=== PATIENT | female | born 1970 | race African-American/Black ===

== ENCOUNTER 2019-06-12 10:52 | Outpatient (CLI) | payer OTHER, SELFPAY ==
--- NOTE | ~2019-06-12 | MMUS_ITS ---
EXAMINATION: MM diagnostic rena BI w subha, US breast RT limited HISTORY: Follow-up right breast mass TECHNIQUE: Additional 3-D tomosynthesis images of were performed and synthetic 2-D images were genera gerry. CAD analysis was submitted and interpreted. High resolution right breast ultrasound was mj young. COMPARISON: Comparison to multiple prior studies sequentially, with oldest reviewed study dated 06/08. FINDINGS: MAMMOGRAPHIC FINDINGS: Breast composed of scattered areas of fibroglandular density. There are no suspicious masses, calcifi cations or architectural distortion in the right breast to suggest malignancy. ULTRASOUND: At 8:00, 3 cm from the nipple, there is an oval circumscribed hypoechoic mass measuring 6 x 3 x 5 mm with low-level internal echoes, posterior acoustic enhancement and no internal vascularity, compatibl e with located cyst. IMPRESSION: 1. Benign findings of the left breast. No mammographic or sonographic evidence for malignancy. 2. Routine yearly screening mammogram and regular clinical breast examination are recommended. BI-RADS Category 2: Benign finding(s). Reviewed, dictated and finalized at location A. [employer] IMPRESSION: 1. Benign findings of the left breast. No mammographic or sonographic evidence for malignancy. 2. Routine yearly screening mammogram and regular clinical breast examination a re recommended. BI-RADS Category 2: Benign finding(s).
== END 2019-06-12 10:53 | disposition home or self-care (01) ==
LOC: ANHIMG 10:55
PROVIDERS: PCP Family Medicine; Visit Provider Obstetrics & Gynecology
DX: R92.8 Other abnormal and inconclusive findings on diagnostic imaging of breast (principal)
CPT/HCPCS: 76642; 77062; 77066; G0279

== ENCOUNTER 2019-07-21 05:33 | Day surgery (SDC) | payer OTHER, SELFPAY ==
[2019-07-18 12:12] VITALS: BMI 39.2
[2019-07-21 06:41] VITALS: BP 141/70; PULSE 69; RESP 18; TEMP 36; O2SAT 100; BMI 39.0
--- NOTE | 2019-07-21 07:05 | WPDANESEPPF ---
Anes - Initial Pre Proc Eval Procedure: Operation Date: 07/21/19 07:30 Proposed Procedures p Esophagogastroduodenoscopy - Roger Juarez MD Date/Time: 07/21/19 07:05 Surgeon: Roger Juarez MD Pre Op Diagnosis: Esophageal Dysphagia Patient Data Age: 49 Gender: F Height: 5 ft 5 in Weight: 106.4 kg Last Vital Signs Temp 36.0 C L 07/21/19 06:41 Pulse 69 07/21/19 06:41 Resp 18 07/21/19 06:41 BP 141/70 H 07/21/19 06:41 Pulse Ox 100 07/21/19 06:41 Allergies Allergy/AdvReac Type Severity Reaction Status Date / Time No Known Allergies Allergy Verified 07/21/19 06:40 Home Medications Medication Instructions Recorded Confirmed Type calcium carbonate 600 mg calcium 600 mg PO DAILY 06/12/19 07/21/19 History (1,500 mg) tablet cholecalciferol (vitamin D3) 50 50 mcg PO DAILY 06/12/19 07/21/19 History mcg (2,000 unit) capsule folic acid 1 mg tablet 1 mg PO DAILY 06/12/19 07/18/19 History omega-3 fatty acids 1,000 mg 1,000 mg PO DAILY 06/12/19 07/21/19 History capsule riboflavin (vitamin B2) 25 mg 25 mg PO DAILY 06/12/19 07/21/19 History tablet fluconazole 150 mg tablet 150 mg PO ONCE #1 tablet 06/26/19 07/18/19 Rx conjugated estrogens [Premarin] 0.625 mg PO DAILY 07/18/19 07/18/19 History metformin 500 mg PO DAILY 07/18/19 07/21/19 History methotrexate sodium See Rx Instructions .ROUTE .COMPLEX 07/18/19 07/18/19 History rosuvastatin 40 mg PO DAILY 07/18/19 07/21/19 History semaglutide [Rybelsus] 3 mg PO DAILY 07/18/19 07/18/19 History Patient hx anesthesia problems: none Family hx anesthesia problems: none PMFSH Past Medical History Medical History Graves disease History of depression History of diabetes mellitus Vaginal delivery x 2 Surgical History Surgical History History of endometrial ablation History of hysterectomy History of tubal ligation Family History Family History Father Hypertension Family history of elevated blood lipids Family history of coronary artery disease Grandparent Carcinoma of colon Diabetes mellitus Mother Family history of lupus erythematosus Social History Social History Smoking status: Never smoker Second hand tobacco smoke exposure: No Alcohol intake: never Gender identity (if verbalized by the patient): Female Anes - Eval Final PreProcedure Day of Procedure 07/21/19 07:05 Patient weight: obese Heart: regular rate and rhythm Lungs: clear to auscultation Airway: Mallampati scale class III Neurological: alert and oriented Last oral intake: >/= 8 hours ASA classification: III Emergent: no Anesthetic plan: proceed Anesthesia type and monitoring: general GIVS and standard monitoring Informed Consent: The patient's anesthetic plan and its attendant risks and benefits were discussed with the patient/family/POA. Questions were solicited and answers provided to the satisfaction of the patient/family/POA.
[2019-07-21 07:07] LABS: Glucose Point of Care 132 (65-105)
[2019-07-21] MEDS: LACTATED RINGERS 1,000 ML 150 ML IV CONT (07:07)
--- NOTE | 2019-07-21 07:10 | PM.HPGS ---
History of Present Illness History of Present Illness Consent: Risks, benefits, and alternatives have been discussed and questions answered. Patient agrees to proceed with procedure. Chief complaint: Esophageal Dysphagia Narrative: Nona Bal is a 49 year old AA female Who was referred for semi- emergent gastroscopy for evaluation of dysphagia. This is primarily with solids but can occur with liquids. She points to the cervical region. She states she does have some heartburn but does not take any acid inhibitory therapy on a regular basis. Patient does have a history of rheumatoid arthritis she takes methotrexate and naproxen on a intermittent basis. She has had no weight loss. She denies any increased stress. Patient has no known food allergies. Patient a previous colonoscopy February 2018 which was normal. [facility] Past Medical History Medical History Graves disease History of depression History of diabetes mellitus Vaginal delivery x 2 Surgical History Surgical History History of endometrial ablation History of hysterectomy History of tubal ligation Family History Family History Father Hypertension Family history of elevated blood lipids Family history of coronary artery disease Grandparent Carcinoma of colon Diabetes mellitus Mother Family history of lupus erythematosus Social History Social History Smoking status: Never smoker Second hand tobacco smoke exposure: No Alcohol intake: never Gender identity (if verbalized by the patient): Female Meds Home Medications and Allergies Home Medications Medication Instructions Recorded Confirmed Type calcium carbonate 600 mg calcium 600 mg PO DAILY 06/12/19 07/21/19 History (1,500 mg) tablet cholecalciferol (vitamin D3) 50 50 mcg PO DAILY 06/12/19 07/21/19 History mcg (2,000 unit) capsule folic acid 1 mg tablet 1 mg PO DAILY 06/12/19 07/18/19 History omega-3 fatty acids 1,000 mg 1,000 mg PO DAILY 06/12/19 07/21/19 History capsule riboflavin (vitamin B2) 25 mg 25 mg PO DAILY 06/12/19 07/21/19 History tablet fluconazole 150 mg tablet 150 mg PO ONCE #1 tablet 06/26/19 07/18/19 Rx conjugated estrogens [Premarin] 0.625 mg PO DAILY 07/18/19 07/18/19 History metformin 500 mg PO DAILY 07/18/19 07/21/19 History methotrexate sodium See Rx Instructions .ROUTE .COMPLEX 07/18/19 07/18/19 History rosuvastatin 40 mg PO DAILY 07/18/19 07/21/19 History semaglutide [Rybelsus] 3 mg PO DAILY 07/18/19 07/18/19 History Allergies Allergy/AdvReac Type Severity Reaction Status Date / Time No Known Allergies Allergy Verified 07/21/19 06:40 Vital Signs Vital Signs - 24 hr 07/21/19 06:41 Temperature 36.0 C L Pulse Rate 69 Respiratory Rate 18 Blood Pressure 141/70 H Pulse Oximetry 100 Exam Const: Orientation/consciousness: patient oriented x3 Resp: Auscultation: clear to auscultation bilaterally Cardio: Rate: regular rate Rhythm: regular rhythm Heart sounds: no murmurs GI: GI Palp: Yes Soft to palpation, No Tenderness to palpation present (GI), Yes No hepatosplenomegaly present and No Palpable mass present Auscultation: normal bowel sounds Neuro: General: patient oriented x3 and no focal motor deficits Extrem: General: no pedal edema Assessment and Plan Additional Plan EGD with possible esophageal dilatation for evaluation of heartburn and dysphagia.
[2019-07-21 07:41] VITALS: BP 123/83; PULSE 83; RESP 16; O2SAT 100
[2019-07-21 07:51] VITALS: BP 129/90; PULSE 75; RESP 20; O2SAT 100
[2019-07-21 08:01] VITALS: BP 127/84; PULSE 68; RESP 25; O2SAT 100
== END 2019-07-21 08:19 | disposition home or self-care (01) ==
PROVIDERS: PCP Family Medicine; Visit Provider Internal Medicine Gastroenterology
PROC: 0DJ08ZZ Inspection of Upper Intestinal Tract, Via Natural or Artificial Opening Endoscopic (ICD-10-PCS; CPT 43235; principal; 2019-07-21 07:30)
DX: R13.10 Dysphagia, unspecified (principal); K21.0 Gastro-esophageal reflux disease with esophagitis; E11.9 Type 2 diabetes mellitus without complications; Z79.84 Long term (current) use of oral hypoglycemic drugs; E05.00 Thyrotoxicosis with diffuse goiter without thyrotoxic crisis or storm; E66.9 Obesity, unspecified; Z68.39 Body mass index [BMI] 39.0-39.9, adult
CPT/HCPCS: 43239; 87081; 88305; J2704; J7120

== ENCOUNTER 2020-06-17 14:21 | Outpatient (CLI) | payer OTHER, SELFPAY ==
--- NOTE | ~2020-06-17 | MM_ITS ---
EXAMINATION: MM screening rena BI w subha HISTORY: Screening TECHNIQUE: Craniocaudal and mediolateral oblique 3-D tomosynthesis images were obtained and synthetic 2-D images were generated. CAD analysis was submitted and interpreted. COMPARISON: Comparison to multiple prior studies sequentially, with oldest reviewed study dated 06/08. BREAST PARENCHYMAL COMPOSITION: There are scattered areas of fibroglandular density. FINDINGS: There is no evidence of suspicious mass, calcification, or architectural distortion to sugg est malignancy in either breast. There has been no suspicious interval change. IMPRESSION: 1. No mammographic evidence of malignancy. 2. Recommend routine screening mammography in one year. BI-RADS Category 1: Negative Reviewed, dictated and finalized at location A. PRESS OPERATOR
== END 2020-06-17 14:22 | disposition home or self-care (01) ==
LOC: ANHIMG 14:23
PROVIDERS: PCP Family Medicine; Visit Provider Obstetrics & Gynecology
DX: Z12.31 Encounter for screening mammogram for malignant neoplasm of breast (principal)
CPT/HCPCS: 77063; 77067

== ENCOUNTER 2020-09-07 20:42 | Emergency (ER) | payer OTHER, SELFPAY ==
[2020-09-07 20:49] VITALS: BP 147/90; PULSE 77; RESP 16; TEMP 36.8; O2SAT 98
--- NOTE | 2020-09-07 20:56 | ED.GENADULT ---
HPI - General Adult General Chief complaint: Extremity Injury, Lower Stated complaint: toe pain Time Seen by Provider: 09/07/20 20:51 Source: patient and RN notes reviewed Mode of arrival: ambulatory Limitations: no limitations History of Present Illness HPI narrative: Patient is a 50-year-old female with right great toe pain that presents with atraumatic pain involving the lateral nail margin denies similar occurrence in the past fever chills drainage or other concerns Related Data Home Medications Medication Instructions Recorded Confirmed calcium carbonate 600 mg calcium 600 mg PO DAILY 06/12/19 06/19/20 (1,500 mg) tablet cholecalciferol (vitamin D3) 50 50 mcg PO DAILY 06/12/19 06/19/20 mcg (2,000 unit) capsule folic acid 1 mg tablet 1 mg PO DAILY 06/12/19 06/19/20 riboflavin (vitamin B2) 25 mg 25 mg PO DAILY 06/12/19 06/19/20 tablet Rybelsus 3 mg PO DAILY 07/18/19 06/19/20 metformin 500 mg PO DAILY 07/18/19 06/19/20 methotrexate sodium 09/07/20 09/07/20 Allergies Allergy/AdvReac Type Severity Reaction Status Date / Time No Known Allergies Allergy Verified 09/07/20 20:48 Review of Systems Review of Systems: All systems reviewed & are unremarkable except as noted in HPI and below PMFSH Past Medical History Medical History (Updated 09/07/20 @ 21:01 by Justin Desai PA-C) Graves disease History of depression History of diabetes mellitus Vaginal delivery x 2 Surgical History Surgical History History of endometrial ablation History of hysterectomy History of tubal ligation Family History Family History Father Hypertension Family history of elevated blood lipids Family history of coronary artery disease Grandparent Carcinoma of colon Diabetes mellitus Mother Family history of lupus erythematosus Social History Social History Smoking status: Never smoker Second hand tobacco smoke exposure: No Alcohol intake: never Gender identity (if verbalized by the patient): Female Exam Narrative: Exam Narrative: GENERAL: Well-appearing, well-nourished, and in no acute distress. HEAD: Normocephalic, atraumatic. EXTREMITIES: Normal range of motion. No edema. Tenderness of the medial nail margin involving the right great toe no deformities erythema or other concerning findings SKIN: Warm, dry, no rash. NEURO: No focal deficits. Alert and oriented x3. Neurovascularly intact. Capillary refill less than 2 seconds PSYCH: Normal mood and affect. Course Course Emergency Course: Patient in the room no distress will be referred to podiatry feels comfortable with this treatment plan and will return if symptoms worsen Vital Signs Vital signs: Vital Signs Temperature 98.2 F 09/07/20 20:49 Pulse Rate 77 09/07/20 20:49 Respiratory Rate 16 09/07/20 20:49 Blood Pressure 147/90 H 09/07/20 20:49 Pulse Oximetry 98 09/07/20 20:49 Temperature 98.2 F 09/07/20 20:49 Pulse Rate 77 09/07/20 20:49 Respiratory Rate 16 09/07/20 20:49 Blood Pressure 147/90 H 09/07/20 20:49 Pulse Oximetry 98 09/07/20 20:49 Medical Decision Making MDM Narrative Medical decision making narrative: Patients injury or pain is consistent with musculoskeletal etiology. No signs of neurological or vascular compromise on exam. Compartments and tisues are soft without signs of compartment syndrome. Pain is felt appropriate for further evaluation on an outpatient basis. Vital Signs Vital Signs: Vital Signs Temperature 98.2 F 09/07/20 20:49 Pulse Rate 77 09/07/20 20:49 Respiratory Rate 16 09/07/20 20:49 Blood Pressure 147/90 H 09/07/20 20:49 Pulse Oximetry 98 09/07/20 20:49 Temperature 98.2 F 09/07/20 20:49 Pulse Rate 77 09/07/20 20:49 Respiratory Rate 16 09/07/20 20:49 Blood Pressure 147/90 H
== END 2020-09-07 21:13 | disposition home or self-care (01) ==
LOC: ANHED 21:04
PROVIDERS: Emergency Provider Emergency Medicine; PCP Family Medicine
DX: M79.674 Pain in right toe(s) (principal); E05.00 Thyrotoxicosis with diffuse goiter without thyrotoxic crisis or storm; E11.9 Type 2 diabetes mellitus without complications; Z79.84 Long term (current) use of oral hypoglycemic drugs
CPT/HCPCS: 99281

== ENCOUNTER 2020-11-21 14:00 | Outpatient (RCR) | payer OTHER, SELFPAY ==
[2020-11-21 14:11] VITALS: BMI 40.4
[2020-11-21 14:13] VITALS: BMI 40.4
== END 2021-02-12 11:52 | disposition home or self-care (01) ==
LOC: ANHDMC 14:00
PROVIDERS: PCP Family Medicine; Visit Provider Internal Medicine Endocrinology, Diabetes & Metabolism
DX: E11.9 Type 2 diabetes mellitus without complications (principal); Z71.3 Dietary counseling and surveillance; Z71.89 Other specified counseling
CPT/HCPCS: 97802; G0108

== ENCOUNTER 2021-02-03 12:45 | Emergency (ER) | payer OTHER, SELFPAY ==
--- NOTE | ~2021-02-03 | XR_ITS ---
EXAMINATION: XR finger 2nd RT min 2V DATE: 02/03/2021 13:45 INDICATION: Right hand second digit injury. TECHNIQUE: 4 views of right hand second digit were obtained. COMPARISON: None. FINDINGS: Bone alignment is normal. No fracture. Joint spaces are well maintained. IMPRESSION: 1. No fracture. Reviewed, dictated and finalized at location A. IMPRESSION: 1. No fracture.
[2021-02-03 13:31] VITALS: BP 146/96; PULSE 74; RESP 14; TEMP 36.3; O2SAT 100
--- NOTE | 2021-02-03 15:58 | ED.GENADULT ---
HPI - General Adult General Chief complaint: Extremity Injury, Upper Stated complaint: finger injury Time Seen by Provider: 02/03/21 14:51 Source: patient Mode of arrival: ambulatory Limitations: no limitations History of Present Illness HPI narrative: Patient is a 50-year-old female presenting with chief complaint of swelling and skin tear to the right index finger that she sustained slamming into the door accidentally. Patient reports swelling and bruising along with a skin tear. Patient reports decreased ability to bend the finger due to swelling and discomfort. Patient denies any other injuries. Patient reports she is up-to-date on tetanus. Related Data Home Medications Medication Instructions Recorded Confirmed calcium carbonate 600 mg calcium 600 mg PO DAILY 06/12/19 06/19/20 (1,500 mg) tablet cholecalciferol (vitamin D3) 50 50 mcg PO DAILY 06/12/19 06/19/20 mcg (2,000 unit) capsule folic acid 1 mg tablet 1 mg PO DAILY 06/12/19 06/19/20 riboflavin (vitamin B2) 25 mg 25 mg PO DAILY 06/12/19 06/19/20 tablet Rybelsus 3 mg PO DAILY 07/18/19 06/19/20 metformin 500 mg PO DAILY 07/18/19 06/19/20 methotrexate sodium 09/07/20 09/07/20 Allergies Allergy/AdvReac Type Severity Reaction Status Date / Time No Known Allergies Allergy Verified 02/03/21 15:39 Review of Systems Review of Systems: CONSTITUTIONAL: Denies fever, chills, or sweats. EYES: Denies visual changes, redness, or discharge. ENT: Denies rhinorrhea, congestion, sore throat, or otalgia. CARDIOVASCULAR: Denies chest pain, palpitations, or edema. RESPIRATORY: Denies cough or dyspnea. GASTROINTESTINAL: Denies abdominal pain, nausea, vomiting, or diarrhea. GENITOURINARY: Denies dysuria or hematuria. SKIN: Reports skin tear denies rash or itching. MUSCULOSKELETAL: Reports finger injury denies back pain, joint pain, or myalgia. NEUROLOGIC: Denies headache, numbness, dizziness, or weakness. PSYCHIATRIC: Denies anxiety or depression. [facility] Past Medical History Medical History (Updated 02/03/21 @ 16:06 by Natasha Maza PA-C) Graves disease History of depression History of diabetes mellitus Vaginal delivery x 2 Surgical History Surgical History History of endometrial ablation History of hysterectomy History of tubal ligation Family History Family History Father Hypertension Family history of elevated blood lipids Family history of coronary artery disease Grandparent Carcinoma of colon Diabetes mellitus Mother Family history of lupus erythematosus Social History Social History Smoking status: Never smoker Second hand tobacco smoke exposure: No Alcohol intake: never Gender identity (if verbalized by the patient): Female Spiritual care concerns: No Exam Narrative: GENERAL: Well-appearing, well-nourished, and in no acute distress. HEAD: Normocephalic, atraumatic. EYES: PERRLA and EOMI. CHEST: Clear to auscultation. No respiratory distress. No wheezes rales or rhonchi HEART: Regular rate and rhythm. No murmur heard. Normal peripheral pulses. EXTREMITIES: Normal range of motion. SKIN: Skin tear to right index finger. Decreased flexion with edema. Non bleeding. Warm, dry, no rash. NEURO: No focal deficits. Alert and oriented x3. PSYCH: Normal mood and affect. Course Vital Signs Vital signs: Vital Signs Temperature 97.3 F L 02/03/21 13:31 Pulse Rate 74 02/03/21 13:31 Respiratory Rate 14 02/03/21 13:31 Blood Pressure 146/96 H 02/03/21 13:31 Pulse Oximetry 100 02/03/21 13:31 Temperature 97.3 F L 02/03/21 13:31 Pulse Rate 74 02/03/21 13:31 Respiratory Rate 14 02/03/21 13:31 Blood Pressure 146/96 H 02/03/21 13:31 Pulse Oximetry 100 02/03/21 13:31 Medical Decision Making MDM Narrative Medical decision making na
== END 2021-02-03 16:38 | disposition home or self-care (01) ==
PROVIDERS: Emergency Provider Emergency Medicine; PCP Family Medicine
DX: S63.610A Unspecified sprain of right index finger, initial encounter (principal); E05.00 Thyrotoxicosis with diffuse goiter without thyrotoxic crisis or storm; E11.9 Type 2 diabetes mellitus without complications; Z79.84 Long term (current) use of oral hypoglycemic drugs; W23.0XXA Caught, crushed, jammed, or pinched between moving objects, initial encounter
CPT/HCPCS: 29130; 73140; 99283

== ENCOUNTER 2021-02-21 12:38 | Outpatient (CLI) | payer OTHER, SELFPAY ==
--- NOTE | ~2021-02-21 | MMUS_ITS ---
EXAMINATION: MM diagnostic rena BI w subha, US breast LT limited HISTORY: Palpable left breast abnormality TECHNIQUE: Additional 3-D tomosynthesis images of the breasts were performed and synthetic 2-D images were generated. CAD analysis was submitted and interpreted. High resolution Limited left breast ultr asound was performed. COMPARISON: Comparison to multiple prior studies sequentially, with oldest reviewed study dated 06/08. BREAST PARENCHYMAL COMPOSITION: Breast composed of scattered areas of fibroglandular density FINDINGS: MAMMOGRAPHIC FINDINGS: The breasts are stable. No new masses, calcifications or architectural distortion in either breast to suggest malignancy. ULTRASOUND: Limited left breast ultrasound: Normal heterogeneous echotexture without focal solid or cystic mass. IMPRESSION: 1. No evidence for malignancy in either breast. 2. Routine yearly screening mammogram and regular clinical breast examination are recommended. BI-RADS Category 1: Negative Reviewed, dictated and finalized at location A. IMPRESSION: 1. No evidence for malignancy in either breast. 2. Routine yearly screening mammogram and regular clinical breast examination a re recommended. BI-RADS Category 1: Negative
== END 2021-02-21 12:39 | disposition home or self-care (01) ==
PROVIDERS: PCP Family Medicine; Visit Provider Obstetrics & Gynecology
DX: R92.8 Other abnormal and inconclusive findings on diagnostic imaging of breast (principal)
CPT/HCPCS: 76642; 77062; 77066; G0279

== ENCOUNTER 2021-10-06 14:54 | Outpatient (RCR) | payer OTHER, SELFPAY ==
--- NOTE | 2021-10-06 16:28 | PTOPEVAL ---
PHYSICAL THERAPY EVALUATION AND PROGRESS REPORT Thank you for referring Nona Bal to [facility].? The patient is scheduled to be seen for therapy? 1x/week for 5 weeks. Please review, sign, date and return this plan of care YURIY. I agree with and certify that the following plan of care is medically necessary. Referring Physician Date Attending Provider: David Cabrera, FLY RAISER LOCKSTITCH-Margie Diagnosis pelvic pain Onset 2-3months Subjective Information Reports an initial pain of Query Text:As Reported By Patient/ suprapubic pain that would Family radiate down her legs. She was experiencing it quite significantly and now the pain is only occasional. No pattern to the behavior of the pain. No specific trigger and nothing helps it to ease. States that when she experiences the severe pain it will last about 30minutes and she just keeps working through it. does have a history of concussion from January 2021 from a work injury. She is sensitive to light and has neck and upper back pain and headaches. Pain Scale Pain Scale Used Numeric (1 - 10) Self Report Pain Assessment Pelvis Reported Pain Level 0 Pain Description Sharp Pain Frequency Acute,Intermittent Lumbar ROM Lumbar Flexion Active Ankle Lumbar Comments functional without increase in symptoms; qasim's sign upon return to standing from flexion Gross Lower Extremity Range of Motion right hip internal rotation < Comments left Hip Strength Left Hip Flexion Strength 5 Normal Hip Extension Strength 3+ Fair + Hip Abduction Strength 3- Fair - Right Hip Flexion Strength 4+ Good + Hip Extension Strength 3- Fair - Hip Abduction Strength 3- Fair - Hip Medial Rotation Strength 4- Good - Hip Lateral Rotation Strength 4- Good - Knee Strength Left Knee Flexion Strength 5 Normal Knee Extension Strength 5 Normal Right Knee Flexion Strength 4 Good Knee Extension Strength 4 Good Muscle Length Testing Piriformis w/Hip Flexion >90 Degrees (R) Moderate Tightness,(L) Moderate Tightness Right Str
--- NOTE | 2021-10-30 13:44 | PCPTNOTE ---
PHYSICAL THERAPY DISCHARGE NOTE Attending Provider: KARSTEN Cordova Patient:Nona Bal Date of :1970 Patient has not returned for or scheduled any further treatments since 10/06/2021, therefore will be discharged at this time. Patient?s initial visit was on 10/06/2021 and had a total of 1 visit. Thank you for referring this patient to [facility]. Please review, sign, date and return this discharge summary YURIY. I have been updated about the patient's current status and I agree with discharge from the above service at this time. Referring Physician Date
== END 2021-10-30 15:08 | disposition home or self-care (01) ==
LOC: ANHPT 14:54
PROVIDERS: PCP Family Medicine; Visit Provider Nurse Practitioner
DX: M99.05 Segmental and somatic dysfunction of pelvic region (principal)
CPT/HCPCS: 97112; 97162

== ENCOUNTER 2022-01-24 16:43 | Emergency (ER) | payer OTHER, SELFPAY ==
[2022-01-24 16:55] VITALS: BP 129/57; PULSE 74; RESP 20; TEMP 36.1; O2SAT 100
[2022-01-24] MEDS: HYDROcodone/acetaminophen (*CRX) 5-325 MG TABLET 1 TAB PO (17:51)
--- NOTE | 2022-01-24 17:55 | ED.GENADULT ---
HPI - General Adult General Chief complaint: Burn/Smoke Inhalation Stated complaint: grease burn on right hand Time Seen by Provider: 01/24/22 17:16 Source: RN notes reviewed History of Present Illness HPI narrative: Patient presents emergency department from home for a grease burn to the right hand. Patient states that approximately 2 hours ago she was making homemade [place] fries when she was putting the potatoes and and the grease came up and burned her right hand over digits 1 and 2 she states agreement scanning of her fingers states pain in the posterior aspect of the first and second digit with some pain over the palmar aspect no blisters have been seen and there is no other areas of burn patient had rinsed off the area and then put Vaseline over the burn Related Data Home Medications Medication Instructions Recorded Confirmed calcium carbonate 600 mg calcium 600 mg PO DAILY 06/12/19 07/01/21 (1,500 mg) tablet (Calcium) cholecalciferol (vitamin D3) 50 50 mcg PO DAILY 06/12/19 07/01/21 mcg (2,000 unit) capsule riboflavin (vitamin B2) 25 mg 25 mg PO DAILY 06/12/19 07/01/21 tablet metformin 500 mg tablet,extended 500 mg PO DAILY 07/18/19 07/01/21 release 24 hr semaglutide 3 mg tablet (Rybelsus) 3 mg PO DAILY 07/18/19 07/01/21 levothyroxine 50 mcg tablet 50 mcg PO DAILY 02/05/21 07/01/21 (Synthroid) Allergies Allergy/AdvReac Type Severity Reaction Status Date / Time No Known Allergies Allergy Verified 06/30/21 14:02 Review of Systems Review of Systems: Gen.: Denies fevers or chills Musculoskeletal: Reports right hand pain Neuro: Denies numbness, tingling, weakness Skin: See HPI Endo: Denies DM PMFSH Past Medical History Medical History Graves disease History of depression History of diabetes mellitus Vaginal delivery x 2 Surgical History Surgical History History of endometrial ablation History of total hysterectomy Family History Family History Father Hypertension Family history of elevated blood lipids Family history of coronary artery disease Grandparent Carcinoma of colon Diabetes mellitus Mother Family history of lupus erythematosus Social History Social History Smoking status: Never smoker Second hand tobacco smoke exposure: No Alcohol intake: never Gender identity (if verbalized by the patient): Female Spiritual care concerns: No Exam Narrative: APPEARANCE: No acute distress, nontoxic, resting in bed Eyes: EOMI HEENT: Normocephalic, atraumatic, RESPIRATORY: No respiratory distress MUSCULOSKELETAl: Full flexion-extension of all 5 MCP and IP joints, capillary refill less than 3 seconds in all 5 digits, radial pulse 2+ neurovascular intact NEURO: Awake and alert. Following commands, speech normal, no focal deficits SKIN:: Warm, dry. Normal Color erythema seen over the distal aspects of the first and second digits of the right hand there is no open wounds there are no blisters present Course Course Emergency Course: Discussed with patient results of workup and diagnosis. Discussed need for follow-up with primary care, proper use of medication, and reasons to return to the emergency department. Patient understands and agrees to current treatment plan Vital Signs Vital signs: Vital Signs Temperature 97.0 F L 01/24/22 16:55 Pulse Rate 74 01/24/22 16:55 Respiratory Rate 20 01/24/22 16:55 Blood Pressure 129/57 L 01/24/22 16:55 Pulse Oximetry 100 01/24/22 16:55 Oxygen Delivery Room Air 01/24/22 16:55 Temperature 97.0 F L 01/24/22 16:55 Pulse Rate 74 01/24/22 16:55 Respiratory Rate 20 01/24/22 16:55 Blood Pressure 129/57 L 01/24/22 16:55 Pulse Oximetry 100 01/24/22 16:55 Oxygen Delivery Room Air 01/24/22
[2022-01-24 18:29] VITALS: BP 121/78; PULSE 78; RESP 18; O2SAT 99
== END 2022-01-24 18:31 | disposition home or self-care (01) ==
PROVIDERS: Emergency Provider Emergency Medicine; PCP Family Medicine
DX: T23.141A Burn of first degree of multiple right fingers (nail), including thumb, initial encounter (principal); T31.0 Burns involving less than 10% of body surface; E11.9 Type 2 diabetes mellitus without complications; E05.00 Thyrotoxicosis with diffuse goiter without thyrotoxic crisis or storm; Z90.710 Acquired absence of both cervix and uterus; Z79.84 Long term (current) use of oral hypoglycemic drugs; X10.2XXA Contact with fats and cooking oils, initial encounter; Y93.G3 Activity, cooking and baking
CPT/HCPCS: 99283; A9270

== ENCOUNTER 2022-02-05 14:00 | Outpatient (RCR) | payer OTHER, SELFPAY ==
--- NOTE | 2021-12-05 12:59 | STOPEVAL ---
COGNITIVE EVALUATION Thank you for referring Nona Bal to [facility].? It is recommended that the patient be scheduled for therapy? 2x/week for 4 weeks however therapy will not commence until approved by Workman's Comp. Please review, sign, date and return this plan of care YURIY. I agree with and certify that the following plan of care is medically necessary. Referring Physician Date Attending Provider: Sterling Villanueva, MD Therapy Assessment Status Assessment Status Assessment Status Evaluation Outpatient Past Medical History Neurological History Hx Transient Ischemic Attacks (TIA) Yes Cardiovascular History Hx Hypercholesterolemia Yes Musculoskeletal History Hx Rheumatoid Arthritis Yes Hematological History Hx Hematological Disorders No Significant History Endocrine History Hx Diabetes Yes Hx Other Endocrine Disorders Yes: GRAVES DISEASE, OSCAR'S THRYROIDITIS HEENT History Hx Sinus Problems Yes Integumentary History Hx Skin Disorders No Significant History Reproductive History Hx Other Reproductive Disorders Yes: ABLATION Psychosocial History Hx Psychiatric Disorders No Significant History Pain History History of Any Previous or Ongoing No Significant History Instance of Pain Anesthesia History Hx Anesthesia Reactions No Significant History Evaluation Information Problem Subjective Information Today the patient reports that Query Text:As Reported By Patient/ she has some pain in her head Family and that light bothers her eyes as a result of the accident. Patient that in January of 2022, sitting in the chair and stood to help someone; she stated that the chair moved and she fell backwards into a bookcase. She stated that she did not lose consciousness however she stated that the impact was so hard she actually raised one of the shelves from its perch. Patient stated that she works at [employer] and went to the Emergency Room where they did CT scan, she believes, and she was experiencing nausea. Patient has not returned to work at this time; she states that she had returned to work following the injury however in April, she suffer
--- NOTE | 2022-01-02 16:24 | STOPDC ---
Assessment and note entered by Nydia Urban PLATFORM ATTENDANT Evaluation Information Assessment Status Discharge Reported Pain Level Pain Score 0: Self Report Pain Score 0: Self Report Assessment ST Clinical Summary TREATMENT SESSION AND DISCHARGE SUMMARY This patient has been seen for an initial Speech Therapy evaluation and four treatment sessions focusing on improving attention and memory/recall. Patient was instructed in the use of most common, functional memory strategies and then asked to match appropriate strategies with functional situations (for example, where did I leave my phone? Visual imagery, back tracking, stating aloud and repeating aloud where I set me phone down). Patient demonstrated good understanding of strategies and use of strategies. She was then given a variety of short stories and asked to use strategies to facilitate recall and did so with 90 % accuracy. Patient then recalled 90% of information from stories in the previous session. Today, she completed several other attention/ recall tasks including recalling information from at least 3-part statements and recalling word lists backwards (to assist with using stating the information backwards to get to the first piece of information) with 100% accuracy. When it was determined that patient's memory and recall in the structured setting is within functional limits and patient has already been instructed in memory strategies and uses, it was determined that she is appropriate for discharge. Patient expressed that she felt that coming in to therapy has been helpful and she would have desired more however it was determined that patient has reached maximum potential from skilled treatment and therefore is being discharged with all goals achieved. Thank you for this referral.
--- NOTE | 2022-01-06 17:00 | PTOPEVAL1 ---
Assessment and note entered by Comfort Zhao, PT Evaluation Information Assessment Status Evaluation Diagnosis concussion Onset 01/27/2021 Subjective Information looking up and down, S<>S makes pt dizzy and nauseas. Has been present since injury Reported Pain Level Pain Score 4: Self Report Additional Pain Score Comments Pt has discomfort in occipital region but also has dizziness and nausea. Sometimes will feel bad just laying in bed, watching TV makes eyes bothered and becomes sweaty . Assessment PT Clinical Summary Pt presents w/ c/o nausea and dizziness primarily w/ nerve pain in back of head (not headache), and cervical pain. Symptoms began 01/2021 when pt fell at work and hit her head on a shelf causing a concussion. Pt is currently seeing another provider for eye exercises , has just graduated Speech therapy, and is seeking Physical therapy for her dizziness/nausea issues. Pt currently has light sensitivity, increased nausea with all head motions, guarded bed mobility, tight cervical musculature, decreased cervical AROM, multiple areas tender to palpation, decreased balance cassius with eyes closed, and increased symptoms with [place]- Hallpike R>L. No nystagmus was noted in evaluation however with pt guarding she was unable to move as quickly as try testing requries. Pt symptoms suggestive of cervicogenic vertigo with possibility of R BPPV. 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 Pt was educated on diagnosis, progosis, HEP of cryotherapy to occiput, and plan of care. Pt will benefit from physical therapy in order to address deficits, reduce pain and nausea symptoms, and return to PLOF. Plan of Care Interventions Electrical Stimulation,Hot Pack/Cold Pack,Manual Therapy,Therapeutic Activities,Therapeutic Exercise,Self-Care/Home Management Other Interventions taping PT Services Indicated Yes These treatments will address the objective and functional deficits as defined above. The patient will be advanced safely and appropriately in order for the patient to progress towards his/her prior level of function. Additional exercises will be introduced and as well as a comprehensive home exercise program upon discharge, if needed, ?to ensure
--- NOTE | 2022-02-06 16:52 | PTOPPROG ---
Assessment and note entered by Comfort Zhao, PT Progress Report Assessment Status Progress Diagnosis concussion Onset 01/27/2021 Subjective Information Pt reports feeling 10-15% improved since starting therapy. Feels her neck is able to move better, has nausea less often maybe every other day instead of every day. She has good days and bad days but more good days than prior to beginning physical therapy. Assessment PT Clinical Summary Pt has attended therapy consistently since initial evaluation. She shows improved tolerance to manual techniques related to soft tissue work, ROM techniques, and positions with less nausea and dizziness. Pt reports feeling 10-15% improved, has nausea less often and reports being able to turn her head with less nausea and pain. Pt subjective reports of pain in neck and back of head remain unchanged, objective measurements of cervical spine show minimal improvement in active range of motion, and balance testing appears to have declined today compared to prior evaluation. However pt has not been able to participate in standing balance training nor has she been able to tolerate MUSIC SPECIALIST techniques d/t nausea which may effect the lack of progress in her balance scores. Discussion with pt regarding lack of subjective and objective improvements, pt states she does feel PT is helping. Educated pt if therapy was to continue, the focus may be less conservative secondary to lack of improvement. Pt verbalizes understanding with this. Thus pt may benefit from therapy with increased focus on exercises for ROM and strengthening, balance training, and modified MUSIC SPECIALIST. Plan of Care Interventions Electrical Stimulation,Manual Therapy,Mechanical Traction,Neuro Re-education,Therapeutic Activities ,Therapeutic Exercise,Self-Care/Home Management, Ultrasound,Other Other Interventions Taping PT Services Indicated Yes Treatment Frequency and 2x weekly x 4 weeks Duration These treatments will address the objective and functional deficits as defined above. The patient will be advanced safely and appropriately in order for the patient to progress towards his/her prior level of function. Additional exercises will be introduced and as well as a comprehensive home exercise program upon discharge, if needed, ?to ensure mary
== END 2022-03-05 23:59 | disposition home or self-care (01) ==
LOC: ANHPT 14:00
PROVIDERS: PCP Family Medicine; Visit Provider Neurological Surgery
DX: F07.81 Postconcussional syndrome (principal)
CPT/HCPCS: 92507; 92523; 97014; 97110; 97140; 97162; G0283

== ENCOUNTER 2022-02-26 10:29 | Outpatient (CLI) | payer OTHER, SELFPAY ==
--- NOTE | ~2022-02-26 | MM_ITS ---
EXAMINATION: MM screening rena BI w subha HISTORY: Screening mammogram TECHNIQUE: Craniocaudal and mediolateral oblique 3-D tomosynthesis images were obtained and synthetic 2-D images were generated. CAD analysis was submitted and interpreted. COMPARISON: 02/21/2021 bilateral diagnostic mammography and limited left breast ultrasound 06/17/2020 bilateral screening mammogram 06/08/2019 bilateral diagnostic mammography and limited right breast ultrasound 01/02/2019 limited right breast ultrasound 06/30/2018 diagnostic right mammogram and limited right breast ultrasound 06/10/2018, 06/08/2017 bilateral screening mammogram examinations BREAST PARENCHYMAL COMPOSITION: There are scattered areas of fibroglandular density. FINDINGS: Stable small circumscribed low-density opacity in the outer mid right breast. There is no e vidence of suspicious mass, calcification, or architectural distortion to suggest malignancy in eithe r breast. There has been no suspicious interval change. IMPRESSION: 1. No mammographic evidence of malignancy. 2. Recommend routine screening mammography in one year. BI-RADS Category 2: Benign finding(s). Reviewed, dictated and finalized at location A. PROTECTION EQUIPMENT TECHNICIAN
== END 2022-02-26 10:30 | disposition home or self-care (01) ==
PROVIDERS: PCP Family Medicine; Visit Provider Obstetrics & Gynecology
DX: Z12.31 Encounter for screening mammogram for malignant neoplasm of breast (principal)
CPT/HCPCS: 77063; 77067

== ENCOUNTER 2022-04-21 11:00 | Outpatient (RCR) | payer OTHER, SELFPAY ==
--- NOTE | 2022-04-02 16:38 | PTOPEVAL1 ---
Assessment and note entered by Ankush Zhao, PT Evaluation Information Diagnosis Vestibular Onset January 2021 Subjective Information Patient reports she was injured at work last year and has been dealing with post concussion syndrome since then with some improvement, but still doing eye therapy at [facility] in [place] along with a home traction and Estim device at home for neck and upper back pain. She had a vertigo episode last Wednesday causing her have nausea and dizziness. Reported Pain Level Pain Score 4: Self Report Additional Pain Score Comments doing home traction and E-stim at home Assessment PT Clinical Summary Nona is coming into the clinic for vestibular rehab. Patient is working on habituation with head movement while the body is in motion along with VOR's and cervical range of motion. Patient will work on decreasing symptoms by having more work on integrating vestibular system with vision and propioception. Plan of Care Interventions Gait Training,Manual Therapy,Patient/Caregiver Education,Therapeutic Activities,Therapeutic Exercise PT Services Indicated Yes Treatment Frequency and 2x/wk for 2 weeks Duration These treatments will address the objective and functional deficits as defined above. The patient will be advanced safely and appropriately in order for the patient to progress towards his/her prior level of function. Additional exercises will be introduced and as well as a comprehensive home exercise program upon discharge, if needed, ?to ensure carryover of functional gains achieved in the clinic. This treatment plan has been reviewed and agreement upon by the patient.
--- NOTE | 2022-04-10 15:07 | PCPTNOTE ---
pt called and canceled due to bad weather;
--- NOTE | 2022-04-21 12:03 | PTOPDC ---
Assessment and note entered by Ankush Zhao, PT Evaluation Information Assessment Status Discharge Diagnosis Vestibular Onset January 2021 Subjective Information Patient reports she was doing well since last visit until this weekend when the changes in temperature are messing with her sinuses and she believes that is causing more dizziness. Reported Pain Level Pain Score 0: Self Report Assessment PT Clinical Summary Nona is a 52 year old female coming into the clinic with vestibular issues from a work on site accident. She has attended 3 sessions having to cancel once because of vertigo symptoms. She also came to the clinic prior to this cycle for vestibular and speech therapy. The patient has shown improvements in decreased symptoms while in the clinic until doing a King-Daroff exercise. Will hold on scheduling new appointments until requested by her doctor. At current time she is discharged from physical therapy unless the clinic receives another order for therapy. Plan of Care PT Services Indicated No Treatment Frequency and discharge from skilled physical therapy Duration
== END 2022-04-21 13:40 | disposition home or self-care (01) ==
LOC: ANHPT 11:00
PROVIDERS: PCP Family Medicine; Visit Provider Neurological Surgery
DX: M54.2 Cervicalgia (principal); M12.88 Other specific arthropathies, not elsewhere classified, other specified site; F07.81 Postconcussional syndrome
CPT/HCPCS: 97110; 97162

== ENCOUNTER 2022-06-26 13:19 | Outpatient (CLI) | payer OTHER, SELFPAY ==
--- NOTE | ~2022-06-26 | US_ITS ---
EXAMINATION: US pelvic complete w TV DATE: 06/26/2022 13:51 INDICATION: Pelvic and perineal pain TECHNIQUE: Multiple transabdominal and endovaginal sonographic images of the pelvis were obtained. COMPARISON: None. FINDINGS: The uterus is not visualized consistent with provided history of prior hysterectomy. The bilateral ov yan are also not visualized and may be surgically absent. Correlate with surgical history. 7 mm lik belkis nabothian cyst at the cervical cuff. There is no free fluid in the pelvis. IMPRESSION: 1. No visualized uterus and bilateral ovaries consistent with prior hysterectomy and salpingo-oophore ctomy. Correlate with surgical history. Reviewed, dictated and finalized at location A. TH PSYCHOLOGIST IMPRESSION: 1. No visualized uterus and bilateral ovaries consistent with prior hysterectom y and salpingo-oophorectomy. Correlate with surgical history.
== END 2022-06-26 13:20 | disposition home or self-care (01) ==
PROVIDERS: PCP Family Medicine; Visit Provider Obstetrics & Gynecology
DX: R10.2 Pelvic and perineal pain (principal)
CPT/HCPCS: 76830; 76856

== ENCOUNTER 2022-07-30 15:00 | Outpatient (RCR) | payer OTHER, SELFPAY ==
--- NOTE | 2022-07-09 17:52 | PTOPEVAL1 ---
Assessment and note entered by Ankush Zhao, PT Evaluation Information Assessment Status Evaluation Diagnosis post concussion Subjective Information Patient reports she is still having issues with dizziness and balance, but reports more issues with her eyes and pain on the R posterior portion of the head that she hit. She has returned to work 3 days a week for half days, but is unable to concentrate on more than one thing at a time. Reports dizziness is worse after gettign up from bed and looking at a busy visual field. She is supposed to start eye therapy again and get new glasses, but she is waiting on approval for both of them. Reported Pain Level Pain Score 0: Self Report Assessment PT Clinical Summary Nona is a 52 year old female coming into the clinic for post concussion syndrome. She has been to the clinic twice before for same diagnosis and also done speech therapy here. Never has shown signs of BPPV before, but to rule out it out did Jacki Halpike without nystagmus but severe increase in dizziness. Will continue to work on vestibular rehab with the patient. Plan of Care Interventions Electrical Stimulation,Gait Training,Hot Pack/Cold Pack,Manual Therapy,Neuro Re-education,Patient/ Caregiver Education,Therapeutic Activities, Therapeutic Exercise,Ultrasound Other Interventions taping PT Services Indicated Yes Treatment Frequency and 2x/wk for 3 weeks per MD order Duration These treatments will address the objective and functional deficits as defined above. The patient will be advanced safely and appropriately in order for the patient to progress towards his/her prior level of function. Additional exercises will be introduced and as well as a comprehensive home exercise program upon discharge, if needed, ?to ensure carryover of functional gains achieved in the clinic. This treatment plan has been reviewed and agreement upon by the patient.
--- NOTE | 2022-07-14 14:55 | PCPTNOTE ---
The patient treatment was not able to be completed on 07/14/22, due to feeling worst since last session, has not been feeling right, increased nausea, even vomiting a few times. Also, while at work when she is trying to read or write something the words will change colors or fade. Right now she is feeling nauseous, unsteady, her body feels off, and is having trouble keeping her eyes open. Explained to her that she need to go home and get away from all stimuli today and limited it tomorrow Will plan to continue treatment per plan of care.
--- NOTE | 2022-07-30 16:16 | PTOPEVAL1 ---
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 She is doing better than previous this therapist has seen her. Has been doing biofeedback therapy at a computer screen. 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 Reported Pain Level Pain Score 5: Self Report Additional Pain Score Comments reports the pain is head pain not a head ache. Gets worse as she gets over-stimulated. Assessment PT Clinical Summary Nona is a 52 year old female coming into the clinic for vestibular rehab. She has been here for her third group of vestibular rehab. Evaluated this last time on 07/08/22 and has attended 6 sessions this go around. Patient shows decent balance, but unable to make much progress with ocular motor movement or vestibular rehab as they just make her too dizzy. At this time recommend holding off on vestibular rehab and trying to concentrate on eye therapy. Discharge from skilled physical therapy. Plan of Care Interventions Electrical Stimulation,Gait Training,Hot Pack/Cold Pack,Manual Therapy,Neuro Re-education,Patient/ Caregiver Education,Therapeutic Activities, Therapeutic Exercise,Ultrasound Other Interventions taping PT Services Indicated No Treatment Frequency and Discharged from skilled physical therapy. Duration These treatments will address the objective and functional deficits as defined above. The patient will be advanced safely and appropriately in order for the patient to progress towards his/her prior level of function. Additional exercises will be introduced and as well as a comprehensive home exercise program upon discharge, if needed, ?to ensure carryover of functional gains achieved in the clinic. This treatment plan has been reviewed and agreement upon by the patient.
== END 2022-07-31 11:34 | disposition home or self-care (01) ==
LOC: ANHPT 15:00
PROVIDERS: PCP Family Medicine; Visit Provider Neurological Surgery
DX: M54.2 Cervicalgia (principal); M12.88 Other specific arthropathies, not elsewhere classified, other specified site; F07.81 Postconcussional syndrome
CPT/HCPCS: 97110; 97161

== ENCOUNTER 2022-07-31 16:26 | Emergency (ER) | payer OTHER, SELFPAY ==
--- NOTE | ~2022-07-31 | XR_ITS ---
EXAMINATION: XR chest 2V DATE: 07/31/2022 16:52 INDICATION: Heart palpitations and shortness of breath TECHNIQUE: Frontal and lateral views of the chest are obtained COMPARISON: 01/30/2018 FINDINGS: The lungs are free of acute opacities. No pleural effusion or pneumothorax. The cardiomedia stinal silhouette is normal. There is mild thoracic spondylosis. IMPRESSION: 1. No acute cardiopulmonary abnormality. Reviewed, dictated and finalized at location F.
--- NOTE | 2022-07-31 16:29 | ECG_ITS ---
Measurements Intervals [place] Rate: 80 P: 32 [place]: 160 QRS: -11 QRSD: 91 T: 131 QT: 345 QTc: 399 Interpretive Statements SINUS RHYTHM VOLTAGE CRITERIA FOR LVH MODERATE T-WAVE ABNORMALITY, CONSIDER LATERAL ISCHEMIA ABNORMAL ECG NO PREVIOUS ECG AVAILABLE FOR COMPARISON Electronically Signed On 07-31-2022 16:57:50 CDT by Ivan Yuen M.D.
[2022-07-31 16:41] VITALS: BP 148/71; PULSE 85; RESP 16; TEMP 37; O2SAT 100
[2022-07-31 16:54] LABS: Basophils Absolute Auto 0.1 K/mm3 (0.0-0.1); Basophils Percent Auto 0.5 % (0.2-1.2); Eosinophils Absolute Auto 0.1 K/mm3 (0-0.3); Eosinophils Percent Auto 0.9 % (0-4.4); Hematocrit 40.1 % (37.0-47.0); Hemoglobin 13.1 g/dL (12.0-15.0); Immature Granulocyte Absolute 0.04 K/mm3 (0.00-0.031); Immature Granulocyte Percent A 0.4 % (0-0.5); Lymphocytes Absolute Auto 3.52 K/mm3 (0.9-3.2); Lymphocytes Percent Auto 35.7 % (18.3-44.2); Mean Corpuscular HGB Conc 32.7 g/dl (32-36); Mean Corpuscular Hemoglobin 29.8 pg (26-34); Mean Corpuscular Volume 91.3 fl (80-100); Mean Platelet Volume 8.9 fl (7.4-10.4); Monocytes Absolute Auto 0.6 K/mm3 (0.1-0.6); Monocytes Percent Auto 6.2 % (2.6-8.5); Neutrophils Absolute Auto 5.6 K/mm3 (1.3-6.7); Neutrophils Percent Auto 56.3 % (45.5-73.1); Platelet Count Result 377 k/mm3 (150-375); Red Blood Count 4.39 M/mm3 (4.2-5.4); White Blood Count 9.9 K/mm3 (4.5-10.0)
[2022-07-31 17:04] LABS: Alanine Aminotransferase 23 U/L (6-35); Albumin Level 4.3 g/dL (3.5-5.1); Alkaline Phosphatase 95 U/L (38-126); Anion Gap 8 mmol/L (8-16); Aspartate Amino Transferase 23 U/L (14-36); Bilirubin,Total 0.4 mg/dL (0.2-1.3); Blood Urea Nitrogen 15 mg/dL (7-17); Carbon Dioxide 25 mmol/L (22-30); Chloride 103 mmol/L (98-107); Estimated CRCL calculation 86 ml/min; Estimated Glomerular Filt Rate > 60; Glucose 182 mg/dL (65-110); Lipase 88 U/L (23-300); Potassium 4.2 mmol/L (3.4-5.0); Sodium 136 mmol/L (137-145)
[2022-07-31 17:05] LABS: Partial Thromboplastin Time 30.6 SECONDS (22.3-36.8); Prothrombin Time 12.7 Seconds (11.1-14.7)
[2022-07-31 17:16] LABS: Troponin I < 0.012 ng/mL (0.000-0.034)
--- NOTE | 2022-07-31 18:22 | ED.ARRPALP ---
HPI - Arrhythmia/Palpitations General Chief Complaint: Arrhythmia/Palpitations Stated Complaint: PALPITATIONS Time Seen by Provider: 07/31/22 17:44 History of Present Illness HPI narrative: Patient is a 52-year-old female with a history of asthma, hyperlipidemia, GERD, Graves' disease presenting with palpitations. Patient states that for the last several weeks she has had increasing fatigue and intermittent palpitations. States that she has also been increasingly intolerant to heat. States that she has had off and on pain in her left chest into her left shoulder for the last several weeks as well. States she is concerned for thyroid storm. Currently, she denies any pain. States that she has some mild nausea and she continues to feel fatigued. She denies numbness or weakness, fevers, abdominal pain, vomiting, diarrhea, dysuria, leg swelling. She does report some constipation. States that sometimes she will feel short of breath which improves with her inhaler. States that she used to be on Synthroid but she quit it about a year ago. Related Data Home Medications Medication Instructions Recorded Confirmed calcium carbonate 600 mg calcium 600 mg PO DAILY 06/12/19 07/29/22 (1,500 mg) tablet (Calcium) cholecalciferol (vitamin D3) 50 50 mcg PO DAILY 06/12/19 07/29/22 mcg (2,000 unit) capsule riboflavin (vitamin B2) 25 mg 25 mg PO DAILY 06/12/19 07/29/22 tablet metformin 500 mg tablet,extended 500 mg PO DAILY 07/18/19 07/29/22 release 24 hr levothyroxine 50 mcg tablet 50 mcg PO DAILY 02/05/21 07/29/22 (Synthroid) albuterol sulfate 90 mcg/actuation 1 inh inhalation Q4H PRN Shortness 05/26/22 07/29/22 aerosol inhaler Of Breath gabapentin 300 mg capsule 300 mg PO DAILY 05/26/22 07/29/22 montelukast 10 mg tablet 10 mg PO DAILY 05/26/22 07/29/22 rosuvastatin 20 mg tablet 20 mg PO DAILY 05/26/22 07/29/22 semaglutide 0.25 mg or 0.5 mg (2 0.25 mg subcut WEEKLY 05/26/22 07/29/22 mg/3 mL) subcutaneous pen injector (Ozempic) famotidine 10 mg tablet 10 mg PO DAILY 07/29/22 07/29/22 Allergies Allergy/AdvReac Type Severity Reaction Status Date / Time No Known Allergies Allergy Verified 07/29/22 13:46 Review of Systems Review of Systems: All systems reviewed & are unremarkable except as noted in HPI and below PMFSH Past Medical History Medical History Graves disease History of depression History of diabetes mellitus Vaginal delivery x 2 Surgical History Surgical History History of endometrial ablation History of total hysterectomy Family History Family History Father Hypertension Family history of elevated blood lipids Family history of coronary artery disease Grandparent Carcinoma of colon Diabetes mellitus Mother Family history of lupus erythematosus Social History Social History Smoking status: Never smoker Second hand tobacco smoke exposure: No Alcohol intake: never Substance use: never Substance use type: does not use Lack of Transportation: No Lack of Food: Never True Current Housing: I Have Housing Concerned About Future Housing: Decline to Answer Difficulty Paying Gas/Electric Bills: No Difficulty Paying for Meds: No Currently Unemployed: No Education: Master's Degree or Higher Difficulty w/ Childcare or Family Care: No Gender identity (if verbalized by the patient): Female Spiritual care concerns: No Exam Narrative: GENERAL: Well-appearing, well-nourished, and in no acute distress. HEAD: Normocephalic, atraumatic. EYES: PERRLA and EOMI. ENT: Nares clear, no rhinorrhea or epistaxis. Mucous membranes moist. NECK: Supple. CHEST: Clear to auscultation. No respiratory distress. HEART: Regular rate and rhythm. No murmur hear
[2022-07-31] MEDS: ONDANSETRON INJ 4 MG/2 ML VIAL IV PUSH (18:36)
[2022-07-31] MEDS: SODIUM CHLORIDE 0.9% IV 1,000 ML 999 ML IV CONT (18:36)
[2022-07-31 19:26] LABS: Influenza A QL RT-PCR Negative (Negative); Influenza B QL RT-PCR Negative (Negative); RSV RNA, RT-PCR Negative (Negative); SARS-CoV-2 RNA PCR Negative
== END 2022-07-31 21:22 | disposition home or self-care (01) ==
PROVIDERS: Emergency Medicine; Emergency Provider Emergency Medicine; PCP Family Medicine
DX: R00.2 Palpitations (principal); R53.83 Other fatigue; Z20.822 Contact with and (suspected) exposure to COVID-19; J45.909 Unspecified asthma, uncomplicated; E05.00 Thyrotoxicosis with diffuse goiter without thyrotoxic crisis or storm; K21.9 Gastro-esophageal reflux disease without esophagitis; Z79.84 Long term (current) use of oral hypoglycemic drugs; Z79.85 Long-term (current) use of injectable non-insulin antidiabetic drugs; Z90.710 Acquired absence of both cervix and uterus
CPT/HCPCS: 36415; 71046; 80053; 83690; 84443; 84484; 85025; 85610; 85730; 87637; 93005; 96361; 96374; 99284; J2405; J7030

== ENCOUNTER 2022-08-07 02:53 | Day surgery (SDC) | payer OTHER, SELFPAY ==
[2022-07-29 13:50] VITALS: BMI 36.6
--- NOTE | 2022-08-06 17:32 | PM.HPGS ---
History of Present Illness History of Present Illness Consent: Risks, benefits, and alternatives have been discussed and questions answered. Patient agrees to proceed with procedure. Chief complaint: dysphagia Narrative: Nona Bal is a 52 year old female Who has dealt with heartburn from time to time, but in the last 2 months she has had a great deal of symptomatology; she would notice that she has of feeling that she may vomit which begins after dinner and will still be present when she goes to bed around 10:00 p.m..? At times in fact she will regurgitate a small bit.? She also has been feeling full and cannot quite finish meal at times.? She believes she eats maybe 1 good meal a day.? Another issue is that it feels as though food is getting stuck, primarily solid food.? Lately this happens with every meal whether it is salad, chicken, or even eggs. Review of Systems Review of Systems: All systems reviewed & are unremarkable except as noted in HPI and below PMFSH Past Medical History Medical History Graves disease History of depression History of diabetes mellitus Vaginal delivery x 2 Surgical History Surgical History History of endometrial ablation History of total hysterectomy Family History Family History Father Hypertension Family history of elevated blood lipids Family history of coronary artery disease Grandparent Carcinoma of colon Diabetes mellitus Mother Family history of lupus erythematosus Social History Social History Smoking status: Never smoker Second hand tobacco smoke exposure: No Alcohol intake: never Substance use: never Substance use type: does not use Lack of Transportation: No Lack of Food: Never True Current Housing: I Have Housing Concerned About Future Housing: Decline to Answer Difficulty Paying Gas/Electric Bills: No Difficulty Paying for Meds: No Currently Unemployed: No Education: Master's Degree or Higher Difficulty w/ Childcare or Family Care: No Gender identity (if verbalized by the patient): Female Spiritual care concerns: No Meds Home Medications and Allergies Home Medications Medication Instructions Recorded Confirmed Type calcium carbonate 600 mg calcium 600 mg PO DAILY 06/12/19 07/29/22 History (1,500 mg) tablet (Calcium) cholecalciferol (vitamin D3) 50 50 mcg PO DAILY 06/12/19 07/29/22 History mcg (2,000 unit) capsule riboflavin (vitamin B2) 25 mg 25 mg PO DAILY 06/12/19 07/29/22 History tablet metformin 500 mg tablet,extended 500 mg PO DAILY 07/18/19 07/29/22 History release 24 hr levothyroxine 50 mcg tablet 50 mcg PO DAILY 02/05/21 07/29/22 History (Synthroid) albuterol sulfate 90 mcg/actuation 1 inh inhalation Q4H PRN Shortness 05/26/22 07/29/22 History aerosol inhaler Of Breath gabapentin 300 mg capsule 300 mg PO DAILY 05/26/22 07/29/22 History montelukast 10 mg tablet 10 mg PO DAILY 05/26/22 07/29/22 History rosuvastatin 20 mg tablet 20 mg PO DAILY 05/26/22 07/29/22 History semaglutide 0.25 mg or 0.5 mg (2 0.25 mg subcut WEEKLY 05/26/22 07/29/22 History mg/3 mL) subcutaneous pen injector (Ozempic) estradiol 0.01% (0.1 mg/gram) See Rx Instructions .Route 06/17/22 07/29/22 Rx vaginal cream (Estrace) .COMPLEX #42.5 grams triamcinolone acetonide 0.1 % 1 applic topical BID PRN vaginal 06/17/22 07/29/22 Rx topical ointment irritation #30 grams famotidine 10 mg tablet 10 mg PO DAILY 07/29/22 07/29/22 History ondansetron 4 mg disintegrating 4 mg PO Q8H PRN nausea and 07/31/22 08/07/22 Rx tablet vomiting #10 tabs Allergies Allergy/AdvReac Type Severity Reaction Status Date / Time No Known Allergies Allergy Verified 08/07/22 11:38 Exam Const: General: alert Orientat
[2022-08-07 11:39] VITALS: BP 121/78; PULSE 64; RESP 18; TEMP 36.6; O2SAT 100
[2022-08-07 11:59] LABS: Glucose Point of Care 140 mg/dl (65-105)
--- NOTE | 2022-08-07 12:25 | WPDANESEPPF ---
Anes - Initial Pre Proc Eval Procedure: Operation Date: 08/07/22 13:00 Proposed Procedures p Esophagogastroduodenoscopy - Trey Foreman MD Date/Time: 08/07/22 12:25 Surgeon: Trey Foreman MD Pre Op Diagnosis: dysphagia Patient Data Age: 52 Gender: F Height: 1.65 m Weight: 99.9 kg Last Vital Signs Temp 97.8 F 08/07/22 11:39 Pulse 64 08/07/22 11:39 Resp 18 08/07/22 11:39 BP 121/78 08/07/22 11:39 Pulse Ox 100 08/07/22 11:39 O2 Del Method Room Air 08/07/22 11:39 Allergies Allergy/AdvReac Type Severity Reaction Status Date / Time No Known Allergies Allergy Verified 08/07/22 11:38 Home Medications Medication Instructions Recorded Confirmed Type calcium carbonate 600 mg calcium 600 mg PO DAILY 06/12/19 07/29/22 History (1,500 mg) tablet (Calcium) cholecalciferol (vitamin D3) 50 50 mcg PO DAILY 06/12/19 07/29/22 History mcg (2,000 unit) capsule riboflavin (vitamin B2) 25 mg 25 mg PO DAILY 06/12/19 07/29/22 History tablet metformin 500 mg tablet,extended 500 mg PO DAILY 07/18/19 07/29/22 History release 24 hr levothyroxine 50 mcg tablet 50 mcg PO DAILY 02/05/21 07/29/22 History (Synthroid) albuterol sulfate 90 mcg/actuation 1 inh inhalation Q4H PRN Shortness 05/26/22 07/29/22 History aerosol inhaler Of Breath gabapentin 300 mg capsule 300 mg PO DAILY 05/26/22 07/29/22 History montelukast 10 mg tablet 10 mg PO DAILY 05/26/22 07/29/22 History rosuvastatin 20 mg tablet 20 mg PO DAILY 05/26/22 07/29/22 History semaglutide 0.25 mg or 0.5 mg (2 0.25 mg subcut WEEKLY 05/26/22 07/29/22 History mg/3 mL) subcutaneous pen injector (Ozempic) estradiol 0.01% (0.1 mg/gram) See Rx Instructions .Route 06/17/22 07/29/22 Rx vaginal cream (Estrace) .COMPLEX #42.5 grams triamcinolone acetonide 0.1 % 1 applic topical BID PRN vaginal 06/17/22 07/29/22 Rx topical ointment irritation #30 grams famotidine 10 mg tablet 10 mg PO DAILY 07/29/22 07/29/22 History ondansetron 4 mg disintegrating 4 mg PO Q8H PRN nausea and 07/31/22 08/07/22 Rx tablet vomiting #10 tabs Laboratory Tests 08/07/22 11:55 POC Capillary Glucose 140 mg/dl H mg/dl (65-105) Patient hx anesthesia problems: none Family hx anesthesia problems: none Results Review: All pre-operative results and documents have been reviewed as part of the pre-operative evaluation. [facility] Past Medical History Medical History Graves disease History of depression History of diabetes mellitus Vaginal delivery x 2 Surgical History Surgical History History of endometrial ablation History of total hysterectomy Family History Family History Father Hypertension Family history of elevated blood lipids Family history of coronary artery disease Grandparent Carcinoma of colon Diabetes mellitus Mother Family history of lupus erythematosus Social History Social History Smoking status: Never smoker Second hand tobacco smoke exposure: No Alcohol intake: never Substance use: never Substance use type: does not use Lack of Transportation: No Lack of Food: Never True Current Housing: I Have Housing Concerned About Future Housing: Decline to Answer Difficulty Paying Gas/Electric Bills: No Difficulty Paying for Meds: No Currently Unemployed: No Education: Master's Degree or Higher Difficulty w/ Childcare or Family Care: No Gender identity (if verbalized by the patient): Female Spiritual care concerns: No Anes - Eval Final PreProcedure Day of Procedure 08/07/22 12:25 Patient weight: obese Heart: regular rate and rhythm Lungs: clear to auscultation Airway: Mallampati scale class II Neurological: alert and oriented Last oral intake: >/= 8 hours
[2022-08-07 12:57] VITALS: BP 105/81; PULSE 93; RESP 19; O2SAT 99
[2022-08-07] MEDS: LACTATED RINGERS 1,000 ML 150 ML IV CONT (13:06)
[2022-08-07 13:07] VITALS: BP 120/74; PULSE 74; RESP 21; O2SAT 100
[2022-08-07 13:17] VITALS: BP 117/58; PULSE 58; RESP 22; O2SAT 100
== END 2022-08-07 13:37 | disposition home or self-care (01) ==
PROVIDERS: PCP Family Medicine; Visit Provider Internal Medicine Gastroenterology
PROC: 0DJ08ZZ Inspection of Upper Intestinal Tract, Via Natural or Artificial Opening Endoscopic (ICD-10-PCS; CPT 43235; principal; 2022-08-07 13:00)
DX: K21.9 Gastro-esophageal reflux disease without esophagitis (principal); K22.2 Esophageal obstruction; E05.00 Thyrotoxicosis with diffuse goiter without thyrotoxic crisis or storm; E11.9 Type 2 diabetes mellitus without complications; E66.9 Obesity, unspecified; Z68.36 Body mass index [BMI] 36.0-36.9, adult; Z79.84 Long term (current) use of oral hypoglycemic drugs; Z79.51 Long term (current) use of inhaled steroids; Z79.899 Other long term (current) drug therapy
CPT/HCPCS: 43239; 43249; 82948; 87081; 88305; C1726; J2704; J7120

== ENCOUNTER 2023-03-22 14:37 | Outpatient (CLI) | payer OTHER, SELFPAY ==
--- NOTE | ~2023-03-22 | MM_ITS ---
EXAMINATION: MM screening [facility] BI w subha HISTORY: Screening mammogram TECHNIQUE: Craniocaudal and mediolateral oblique 3-D tomosynthesis images were obtained and synthetic 2-D images were generated. CAD analysis was submitted and interpreted. COMPARISON: 02/26/2022, 02/21/2021, 06/17/2020, 06/12/2019, 06/30/2018, 06/10/2018 BREAST PARENCHYMAL COMPOSITION: There are scattered areas of fibroglandular density. FINDINGS: There is a stable, low density mass in the outer right breast, consistent with a benign fin ding. No suspicious mass, calcification, or architectural distortion are identified in either breast to suggest malignancy. There has been no suspicious interval change. IMPRESSION: 1. No mammographic evidence of malignancy. 2. Recommend routine screening mammography in one year. BI-RADS Category 2: Benign finding(s). Reviewed, dictated and finalized at location A. LCANIZER TENDER
== END 2023-03-22 14:38 | disposition home or self-care (01) ==
LOC: ANHIMG 14:41
PROVIDERS: PCP Family Medicine; Visit Provider Obstetrics & Gynecology
DX: Z12.31 Encounter for screening mammogram for malignant neoplasm of breast (principal)
CPT/HCPCS: 77063; 77067

== ENCOUNTER 2024-10-05 15:08 | Outpatient (CLI) | payer OTHER, SELFPAY ==
--- OUTSIDE RECORDS SUMMARY | 2024-10-05 15:12 | XMS_ITS | Encounter Summary ---
Author Organization [facility] Facility Care Team Providers Care Food Service Clerk Name Role Phone Maren Garcia MD Primary Care Provider [phone] Maren Garcia MD Primary Care Provider [phone] Mahesh Kearney MD Primary Care Provider [phone] Iman Hutchison NP Primary Care Provider [phone] Encounter Details Date Type Department Care Team (Latest Contact Info) Description 07/08/2015 Orders Only [facility] CLINCONV ProviderBrooks MD [address] [place] [id number] Social History Tobacco Use Types Packs/Day Years Used Date Smoking Tobacco: Never Alcohol Use Standard Drinks/Week Comments No 0 (1 standard drink = 0.6 oz pur e alcohol) Comments Unknown Sex and Gender Information Value Date Recorded Sex Assigned at Not on file Legal Sex Female 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 us Historical Provider Final Res ult documented in this encounter Visit Diagnoses Not on filedocumented in this encounter Care Teams Food Service Clerk Relationship Specialty Start Date End Date Maren Garcia MD PCP - General 06/08/16 12/14/17 Maren Garcia MD PCP - General 01/17/14 06/07/16 Mahesh Kearney MD [facility] [place] [address] PCP - General Family Medicine 12/15/17 02/14/24 Iman Hutchison NP [address] [place] [id number] PCP - General Nurse Practitioner 02/15/24 documented as of this encounter
--- OUTSIDE RECORDS SUMMARY | 2024-10-05 15:12 | XMS_ITS | Encounter Summary ---
Author Organization [facility] Facility Care Team Providers Care Surface Water Manager Name Role Phone Maren Garcia MD Primary Care Provider [phone] Maren Garcia MD Primary Care Provider [phone] Mahesh Kearney MD Primary Care Provider [phone] Iman Hutchison NP Primary Care Provider [phone] Encounter Details Date Type Department Care Team (Latest Contact Info) Description 09/26/2015 Orders Only [facility] CLINCONV ProviderBrooks MD [address] [place] [id number] Social History Tobacco Use Types Packs/Day Years Used Date Smoking Tobacco: Never Alcohol Use Standard Drinks/Week Comments No 0 (1 standard drink = 0.6 oz pur e alcohol) Comments Unknown Sex and Gender Information Value Date Recorded Sex Assigned at Not on file Legal Sex 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 us Historical Provider Final Res ult documented in this encounter Visit Diagnoses Not on filedocumented in this encounter Care Teams Surface Water Manager Relationship Specialty Start Date End Date Maren Garcia MD PCP - General 06/08/16 12/14/17 Maren Garcia MD PCP - General 01/17/14 06/07/16 Mahesh Kearney MD [address] [place] [id number] PCP - General Family Medicine 12/15/17 02/14/24 Iman Hutchison, ZAIRA [address] [place] [id number] PCP - General Nurse Practitioner 02/15/24 documented as of this encounter
--- OUTSIDE RECORDS SUMMARY | 2024-10-05 15:12 | XMS_ITS | Referral Summary ---
Author Organization [facility] al Address [address] [place] [address] Care Team Providers Care Deportation Examiner Name Role Phone Iman Hutchison NP Primary Care Provider [phone] Allergies Active Allergy Reactions Criticality Noted Date Comments Ibuprofen Stomach upset Low 01/17/2015 Stomach Upset with 800 mg Medications aspirin 81 mg chewable tablet Take 1 tablet (81 mg total) by mouth 01/23/20 15 Active riboflavin (Vitamin B-2) 100 mg tabletIndications: Riboflavin Deficiency Take 1 tablet (100 mg total) by mouth 2 times daily 12/02/19 16 Active propranolol (INDERAL) 10 mg tablet Take 1 tablet (10 mg total) by mouth as needed 05/10/19 19 Active naproxen (NAPROSYN) 500 mg tablet Take 1 tablet (500 mg total) by mouth 2 (two) times a day as needed for pain 6 05/09/19 19 Active semaglutide (RYBELSUS) 7 mg tablet Rybelsus 7 mg tablet Active cyanocobalamin (Vitamin B-12) 1,000 mcg/mL injection cyanocobalamin (vit B-12) 1,000 mcg/mL injection solution ADMINISTER 1 ML UNDER THE SKIN EVERY WEEK IN THE MORNING Active levothyroxine (SYNTHROID) 75 mcg tablet Take 1 tablet (75 mcg total) by mouth early childhood before breakfast Active rosuvastatin (CRESTOR) 40 mg tablet Take 40 mg by mouth 3 (three) times a week Mon/Wed/Fri Active cholecalciferol (VITAMIN D-3) 25 mcg (1,000 unit) tablet Take 2 tablets (2,000 Units total) by mouth daily Active ascorbic acid (VITAMIN C) 1,000 mg tablet Take 1 tablet (1,000 mg total) by mouth daily Active omega-3 fatty acids-fish oil 300-1,000 mg capsule Take 1 capsule (1 g total) by mouth daily Active amLODIPine (NORVASC) 2.5 mg tablet Take 1 tablet (2.5 mg total) by mouth daily 30 tablet 11 05/21/19 22 Active Additional Information Patient not taking.Reported on 10/13/2021 HYDROcodone-acetam inophen (NORCO) 5-325 mg per tabletIndications: Pain Take 1 tablet by mouth every 4 (four) hours as needed (pain 5-10) 15 tablet 05/20/19 22 Active Additional Information Patient not taking.Reported on 10/13/2021 cyclobenzaprine (FLEXERIL) 5 mg tablet Take 1 tablet (5 mg total) by mouth 3 (three) times a day as needed for muscle spasms (do not drive while taking flexeril ( can cause drousiness)) Caution with medication and driving as it can cause sleepiness 30 tablet 1 05/20/19 22 Active Additional Information Patient not taking.Reported on 10/13/2021 traMADoL (ULTRAM) 50 mg tablet tramadol 50 mg tablet TAKE 1 TABLET BY MOUTH EVERY 8 HOURS NEEDED FOR PAIN Active tiZANidine (ZANAFLEX) 4 mg tablet Take 4 mg by mouth nightly 07/18/19 22 Active insulin syringe-needle U-100 1 mL 31 gauge x 09/01 syringe TRUEplus Insulin 1 mL 31 gauge x 5/16 syringe 04/19/18 70 Active ramelteon (ROZEREM) 8 mg tablet ramelteon 8 mg tablet TAKE 1 TABLET BY MOUTH EVERY DAY IN THE MORNING Active ondansetron ODT (ZOFRAN-ODT) 4 mg disintegrating tablet ondansetron 4 mg disintegrating tablet Active metFORMIN XR (GLUCOPHAGE XR) 500 mg 24 hr tablet Active metaxalone (SKELAXIN) 800 mg tablet Active meclizine (ANTIVERT) 25 mg tablet Take 25 mg by mouth daily 07/30/19 22 Active indomethacin (INDOCIN) 50 mg capsule indomethacin 50 mg capsule TAKE 1 CAPSULE BY MOUTH THREE TIMES DAILY WITH FOOD NEEDED Active ibuprofen (ADVIL,MOTRIN) 800 mg tablet ibuprofen 800 mg tablet Active escitalopram (LEXAPRO) 10 mg tablet Take 10 mg by mouth daily 07/30/19 22 Active dexAMETHasone (DECADRON) 4 mg tablet TAKE 1 TABLET BY MOUTH ONCE DAILY FOR 5 DAYS 07/18/19 22 Active Breo Ellipta 100-25 mcg/dose diskus inhaler Inhale 1 puff daily Rinse mouth with water after use. Do not swallow. 60 each 3 10/14/19 22 Active Ozempic 0.25 mg or 0.5 mg(2 mg/1.5 mL) pen injector injection INJECT 0.5MG UNDER THE SKIN ONCE A WEEK AT DINNER 04/06/20 22 Active gabapentin (NEURONTIN) 300 mg capsule TAKE 2 CAPSULES BY MOUTH AT NIGHT 04/06/[address] (CYMBALTA) 30 mg capsule duloxetine 30 mg capsule,delayed release Active FreeStyle Ynana 3 Sensor device CHANGE SENSOR EVERY 14 DAYS. 02/18/20 22 Active blood-glucose sensor (FreeStyle Yanna 3 Sensor) device FreeStyle Yanna 3 Sensor device 04/19/18 70 Active amoxicillin-clavul anate (AUGMENTIN) 875-125 mg per tablet Take 1 tablet by mouth every 12 (twelve) hours for 10 days 10/20/19 23 Active fluconazole (DIFLUCAN) 150 mg tablet TAKE 1 TABLET BY MOUTH FOR 1 DAY 10/20/[address] (PROTONIX) 40 mg EC tablet Take 1 tablet (40 mg total) by mouth every morning 08/08/19 23 Active albuterol HFA (PROVENTIL HFA,VENTOLIN HFA,PROAIR HFA) 90 mcg/actuation inhaler Inhale 2 puffs every 6 (six) hours as needed for shortness of breath 1 each 11 10/27/19 24 Active montelukast (SINGULAIR) 10 mg tablet Take 1 tablet (10 mg total) by mouth nightly 90 tablet 3 10/27/19 24 Active ergocalciferol (VITAMIN D) 50,000 unit capsule Take 1 capsule (50,000 Units total) by mouth Active fluticasone furoate-vilanteroL (Breo Ellipta) 100-25 mcg/dose diskus inhalerIndications :Shortness of breath Inhale 1 puff daily Rinse mouth with water after use. Do not swallow. 3 each 11 02/14/20 24 Active Airsupra 90-80 mcg/actuation HFA aerosol inhaler INHALE 2 PUFFS BY MOUTH THREE TIMES DAILY NEEDED FOR SHORTNESS OF BREATH 05/07/19 25 Active Active Problems Problem Noted Date Diagnosed Date Hypertensive urgency 05/20/2021 Chest pain 05/19/2021 Assessment & Plan (05/19/2021 12:31 PM ATTENDANCE SECRETARY): Patient presented with atypical chest pain constant for the last week Risk factors include diabetes, obesity, father with early sudden heart and hyperlipidemia Troponin is negative She had normal echo July last year She had normal stress test 2016 On exam she does have chest wall tenderness, she does have anxiety But her EKG did show diffuse T-wave inversion Heart rate around 60, blood pressure elevated and she does have scattered rhonchi and wheezes with acceptable air entry Plan Placed in observation Continue NM rule out with 2 more troponins Continue nitroglycerin Continue statin Continue aspirin Cardiology team consulted Dr. Peña informed in the ER I discussed the case with him with EKG findings, will see the patient today possible stress test tomorrow I will keep NPO after midnight Cardiac diet for now Primary hypertension 05/19/2021 Assessment & Plan (05/19/2021 12:32 PM ATTENDANCE SECRETARY): Blood pressure is elevated According to the patient it been elevated on and off for a while but never been on treatment Heart rate around 60 Blood pressure dropped with nitroglycerin sublingual once I will add amlodipine small dose 2.5 mg Monitor blood pressure Mild persistent asthma without complication 04/21 Assessment & Plan (05/19/2021 12:33 PM ATTENDANCE SECRETARY): Patient said she uses her inhalers on p.r.n. basis only She is supposed to be on Breo and albuterol inhaler Chest x-ray did not show any acute finding She did have symptoms of mild cough and wheezes on and off for the last week On exam she had scattered rhonchi and mild wheezes I will restart her home albuterol inhaler Will add Symbicort inhaler instead of Breo while hospitalized Dysphagia 07/16/2020 Enthesopathy of hip region 07/16/2020 Hip pain 07/16/2020 Hyperhidrosis 07/16/2020 Injury of hand 07/16/2020 Itching 07/16/2020 Lateral epicondylitis 07/16/2020 Liver cyst 07/16/2020 Low back pain 07/16/2020 Nonspecific syndrome suggestive of viral illness 07/16/2020 Primary focal hyperhidrosis 07/16/2020 Right upper quadrant pain 07/16/2020 Sinusitis 07/16/2020 Tinea cruris 07/16/2020 Urticaria 07/16/2020 Abnormal mammogram 03/14/2019 High risk medication use 02/23/2018 Rheumatoid arthritis of mult iple sites with negative rheumatoid factor 12/15/2017 Joint swelling 12/15/2017 Vitamin D deficiency 05/14/2016 Graves' disease 03/19/2016 Overview (07/16/2020): Management per patient's medical doctor Obesity with body mass index 30 or greater 01/29 Fibromyalgia 01/30/2016 Palpitations 12/27/2015 Shortness of breath 12/27/2015 Fatigue 10/25/2015 Memory impairment 10/25/2015 Pain in joint 10/15/2015 Psychological factors affecting medical conditio n 04/25/2015 Conversion disorder 04/03/2015 Migraine with aura and witho ut status migrainosus, not intractable 04/03/2015 Generalized anxiety disorder 04/03/2015 Assessment & Plan (05/19/2021 12:31 PM ATTENDANCE SECRETARY): Clearly patient is anxious and depressed She said stress level increased in the last couple of months since she had head concussion She is not on any depression medications I will check TSH level Give small dose Ativan p.r.n. while in the hospital After completing her cardiac workup she will need to follow with her PCP for depression and anxiety Hyperlipidemia 01/21/2015 Thyrotoxicosis with thyrotoxic crisis 03/22/2013 Overview (07/23/2016): THYROTOX NOS NO CRISIS Resolved Problems Problem Noted Date Diagnosed Date Resolved Date Arthritis 11/28/2015 12/15/2017 Hyperthyroidism 07/12/2015 05/19/2021 Social History Tobacco Use Types Packs/Day Years Used Date Smoking Tobacco: Never Smokeless Tobacco: Never Tobacco Cessation:Counseling Given: Not Answered Alcohol Use Standard Drinks/Week Comments No 0 (1 standard drink = 0.6 oz pur e alcohol) AUDIT-C Answer Date Recorded Q1: How often do you have a drink containing alc ohol? Never 05/19/2021 Average Number of Drinks Not on file 022 Q3: How often do you have si x or more drinks on one occasion? Never 05/19/2021 Comments No Sex and Gender Information Value Date Recorded Sex Assigned at Not on file Legal Sex Female 3:03 AM ATTENDANCE SECRETARY Gender Identity Not on file Sexual Orientation Not on file Last Filed Vital Signs Vital Sign Reading Time Taken Comments Blood Pressure 124/72 05/23/2024 4:05 PM ATTENDANCE SECRETARY Pulse 73 05/23/2024 4:05 PM ATTENDANCE SECRETARY Temperature 36.4 C (97.5 F) 05/23/2024 4:05 PM ATTENDANCE SECRETARY Respiratory Rate 18 05/23/2024 4:05 PM ATTENDANCE SECRETARY Oxygen Saturation 98% 05/23/2024 4:05 PM ATTENDANCE SECRETARY Inhaled Oxygen Concentration - - Weight 100.2 kg (221 lb) 05/23/2024 4:05 PM ATTENDANCE SECRETARY Height 167.6 cm (5' 5.98) 05/23/2024 4:05 PM CS T Body Mass Index 35.69 05/23/2024 4:05 PM ATTENDANCE SECRETARY Plan of Treatment Not on file Procedures Procedure Name Priority Date/Time Associated Diagnosis Comments SCREENING MAMMOGRAM BILATERAL W FROILAN Routine 03/20/2016 1:11 PM ATTENDANCE SECRETARY SERUM HEPATITIS C AB Routine 10/15/2015 6:30 AM CDT from Last 3 Months or Most Recently Relevant to Health Maintenance Results * Screening Mammogram Bilateral W Froilan (03/20/2016 1:11 PM ATTENDANCE SECRETARY) Anatomical Region Laterality Modality Breast Bilateral Mammography 03/20/2016 1:11 PM ATTENDANCE SECRETARY Impressions 03/20/2016 1:52 PM ATTENDANCE SECRETARY BI-RAD 1 NEGATIVE There is no mammographic evidence of malignancy. A 1 year screening mammogram is recommended. The patient has been or will be contacted. The patient will be entered into a reminder system with a target due date of 1 year for her next screening exam. Electronically signed by: Andrea Manzo md/negra:03/20/2016 13:51:53 Expanded Duty Dental Assistant: Lindsay URIBE)(Ashleigh), [facility] letter sent: Normal Exam Reading location: BI-RADS: 1 Negative [EOD] Narrative 03/20/2016 1:52 PM ATTENDANCE SECRETARY - MG BILATERAL DIGITAL SCREENING MAMMOGRAM 3D/2D WITH CAD WITH MEDIOLATERAL OBLIQUE CRANIOCAUDAL: 03/20/2016 The study was acquired using full field digital technology and interpreted from soft copy. Current study was also evaluated with R2 CAD. 2D digital mammographic views, as well as 3D digital tomosynthesis were performed in the CC and MLO projections. CLINICAL: Routine mammogram. Patient denies any problems. Maternal aunt with breast cancer. No personal history of breast cancer. COMPARISONS: Comparison is made to exams dated: 03/06/2015 mammogram, 02/06/2015 mammogram, 03/07/2014 mammogram, 03/02/2014 mammogram, and 03/01/2013 mammogram - [facility]. BREAST TISSUE: There are scattered areas of fibroglandular density. FINDINGS: No significant masses, calcifications, or other findings are seen in either breast. There has been no significant interval change. Procedure Note Provider, MD Brooks - 09/03/2020 - MG BILATERAL DIGITAL SCREENING MAMMOGRAM 3D/2D WITH CAD WITH MEDIOLATERALOBLIQUE CRANIOCAUDAL: 03/20/2016 The study was acquired using full field digital technology and interpretedfrom soft copy. Current study was also evaluated with R2 CAD. 2D digital mammographic views, as well as 3D digital tomosynthesis were performed in the CC and MLO projections. CLINICAL: Routine mammogram. Patient denies any problems. Maternal auntwith breast cancer. No personal history of breast cancer. COMPARISONS: Comparison is made to exams dated: 03/06/2015 mammogram, 02/06/2015 mammogram, 03/07/2014 mammogram, 03/02/2014 mammogram, and 03/01/2013 mammogram - [facility]. BREAST TISSUE: There are scattered areas of fibroglandular density. FINDINGS: No significant masses, calcifications, or other findings areseen in either breast. There has been no significant interval change. IMPRESSION: BI-RAD 1 NEGATIVE There is no mammographic evidence of malignancy. A 1 year screeningmammogram is recommended. The patient has been or will be contacted. The patient will be entered into a reminder system with a target due dateof 1 year for her next screening exam. Electronically signed by: Andrea Manzo md/negra:03/20/2016 13:51:53 Expanded Duty Dental Assistant: Lindsay Pendleton RT(R)(M), [facility] letter sent: Normal Exam Reading location: BI-RADS: 1 Negative [EOD] us Tristan West MD IMG MAMMO PROCEDURES Final Result * Serum Hepatitis C ab (10/15/2015 6:30 AM CDT) HCV ab Negative NEG HISTORICAL RESULTS Serum 10/15/2015 6:30 AM CDT Narrative HISTORICAL RESULTS - 10/16/2015 6:02 AM CDT Interpretive Data If confirmation is required, call Laboratory Customer Service to request sample to be sent to [facility] for Hepatitis C Virus (HCV) RNA Detection and Quantitation by Real-Time Reverse Laborer Tin Can-PCR (RT-PCR). Current interpretive data was last revised on 2011 us Miya Kearney CLINICAL OB LAB BLOOD ORDERABLES Final Result HISTORICAL RESULTS from Last 3 Months or Most Recently Relevant to Health Maintenance Insurance [employer] [facility] [employer] OPEN ACCESS Advance Directives For more information, please contact: [phone] * Full Code (Latest Code Status on File) Date Activated Date Inactivated Comments 05/19/2021 1:37 PM 05/20/2021 11:18 PM Healthcare Agents on File Name Relationship Healthcare Agent [facility] Communication Kofi Turner Father Second Alternate Health Care Agent Care Teams Deportation Examiner Relationship Specialty Start Date End Date Iman Hutchison NP [address] [facility] [address] [place] [address] PCP - General Nurse Practitioner 02/15/24
--- OUTSIDE RECORDS SUMMARY | 2024-10-05 15:12 | XMS_ITS | Clinical Summary ---
Author Organization [facility] al Address [address] [place] [address] Care Team Providers Care Heating Unit Mechanic Name Role Phone Iman Hutchison NP Primary Care Provider [phone] Allergies Active Allergy Reactions Criticality Noted Date [...] 1 tablet (75 mcg total) by mouth manufacturer's representative before breakfast Active rosuvastatin (CRESTOR) 40 mg [...] duloxetine 30 mg capsule,delayed release Active FreeStyle Yanna 3 Sensor device CHANGE SENSOR EVERY 14 [...] 05/19/2021 Assessment & Plan (05/19/2021 12:31 PM EMERGENCY DEPARTMENT PHYSICIAN): Patient presented with atypical chest pain constant [...] air entry Plan Placed in observation Continue [place] rule out with 2 more troponins Continue nitroglycerin Continue statin Continue aspirin Cardiology team consulted Dr. Peña informed in the ER I discussed the case with him with EKG findings, will see the patient today possible stress test tomorrow I will keep NPO after midnight Cardiac diet for now Primary hypertension 05/19/2021 Assessment & Plan (05/19/2021 12:32 PM EMERGENCY DEPARTMENT PHYSICIAN): Blood pressure is elevated According to the patient it been elevated on and off for a while but never been on treatment Heart rate around 60 Blood pressure dropped with nitroglycerin sublingual once I will add amlodipine small dose 2.5 mg Monitor blood pressure Mild persistent asthma without complication 04/21 Assessment & Plan (05/19/2021 12:33 PM EMERGENCY DEPARTMENT PHYSICIAN): Patient said she uses her inhalers on [...] 04/03/2015 Assessment & Plan (05/19/2021 12:31 PM EMERGENCY DEPARTMENT PHYSICIAN): Clearly patient is anxious and depressed She [...] Date Arthritis 11/28/2015 12/15/2017 Hyperthyroidism 07/12/2015 05/19/2021 Surgical History Surgery Date Site/Laterality Comments TUBAL LIGATION TOTAL ABDOMINAL HYSTERECTOMY W/ BILATERAL SALPINGOOPHORECTOMY Medical History Medical History Date Comments Hx Other Medical claustrophobic; Comments: PKJ 01/17/2014 - Hx Other Medical Headache, migra ine Hypothyroidism Hyperlipidemia Migraine headache History of seronegative infl ammatory arthritis Arthritis 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 TIA (transient ischemic attack) Mild persistent asthma witho ut complication 05/19/2021 Family History Medical History Relation Name Comments Heart disease Father Family history of cardiac disorder - (Added by TW Conv) Hypertension Father Family history of hypertension - (Added by TW Conv) Kidney cancer Father Family history of kidney cancer - (Added by TW Conv) Prostate cancer Maternal Grandfather Lupus Mother Family history of systemic lupus erythematosus - (Added by TW Conv) Rheum arthritis Mother Family histo ry of rheumatoid arthritis - (Added by TW Conv) Sarcoidosis Mother Family history of sarcoidosis - (Added by Conv) Breast cancer Mother's Sister Prostate cancer Paternal Grandfather Relation Name Status Comments Father Maternal Grandfather Mother Mother's Sister Paternal Grandfather Social History Tobacco Use Types Packs/Day Years [...] on file Legal Sex Female 3:03 AM EMERGENCY DEPARTMENT PHYSICIAN Gender Identity Not on file Sexual Orientation Not on file Obstetrics History Last Filed Vital Signs Vital Sign Reading Time Taken Comments Blood Pressure 124/72 05/23/2024 4:05 PM EMERGENCY DEPARTMENT PHYSICIAN Pulse 73 05/23/2024 4:05 PM EMERGENCY DEPARTMENT PHYSICIAN Temperature 36.4 C (97.5 F) 05/23/2024 4:05 PM EMERGENCY DEPARTMENT PHYSICIAN Respiratory Rate 18 05/23/2024 4:05 PM EMERGENCY DEPARTMENT PHYSICIAN Oxygen Saturation 98% 05/23/2024 4:05 PM EMERGENCY DEPARTMENT PHYSICIAN Inhaled Oxygen Concentration - - Weight 100.2 kg (221 lb) 05/23/2024 4:05 PM EMERGENCY DEPARTMENT PHYSICIAN Height 167.6 cm (5' 5.98) 05/23/2024 4:05 PM CS T Body Mass Index 35.69 05/23/2024 4:05 PM EMERGENCY DEPARTMENT PHYSICIAN Plan of Treatment Health Maintenance Due Date Last Done Comments Colon Cancer Screening-Colonoscopy 1971 Depression Screening 1971 DTaP/Tdap/Td Vaccine (1 - Tdap) 1982 Hepatitis B Screening 1989 Regular Well Visit/Exam 18-64 1989 Pneumococcal vaccine <65 (1 of 2 - PCV) 1990 Breast Cancer Screening-Mammogram 03/20/2017 03/20/2016, 03/06/2015, 03/02/2014, Additional history exists Zoster Vaccine (1 of 2) 2021 Covid-19 Vaccine (3 - 2023-2 5 season) 2023 01/12/2021, 12/21/2020 Influenza Vaccine (Season Ended) 2024 Hepatitis C Screening Completed 10/15/2015 Procedures Procedure Name Priority Date/Time Associated Diagnosis Comments SCREENING MAMMOGRAM BILATERAL W FROILAN Routine 03/20/2016 1:11 PM EMERGENCY DEPARTMENT PHYSICIAN SERUM HEPATITIS C AB Routine 10/15/2015 6:30 AM CDT from Last 3 Months or Most Recently Relevant to Health Maintenance Results * Screening Mammogram Bilateral W Froilan (03/20/2016 1:11 PM EMERGENCY DEPARTMENT PHYSICIAN) Anatomical Region Laterality Modality Breast Bilateral Mammography 03/20/2016 1:11 PM EMERGENCY DEPARTMENT PHYSICIAN Impressions 03/20/2016 1:52 PM EMERGENCY DEPARTMENT PHYSICIAN BI-RAD 1 NEGATIVE There is no mammographic evidence of malignancy. A 1 year screening mammogram is recommended. The patient has been or will be contacted. The patient will be entered into a reminder system with a target due date of 1 year for her next screening exam. Electronically signed by: Andrea Manzo md/negra:03/20/2016 13:51:53 Exterminator Termite: Lindsay URIBE)(Ashleigh), [facility] letter sent: Normal Exam Reading location: BI-RADS: 1 Negative [EOD] Narrative 03/20/2016 1:52 PM EMERGENCY DEPARTMENT PHYSICIAN - MG BILATERAL DIGITAL SCREENING MAMMOGRAM 3D/2D [...] mammogram, 03/02/2014 mammogram, and 03/01/2013 mammogram - [facility]. BREAST TISSUE: There are scattered areas of [...] mammogram, 03/02/2014 mammogram, and 03/01/2013 mammogram - [facility]. BREAST TISSUE: There are scattered areas of [...] screening exam. Electronically signed by: Andrea Manzo md/engra:03/20/2016 13:51:53 Exterminator Termite: Lindsay URIBE)(Ashleigh), [facility] letter sent: Normal Exam Reading location: BI-RADS: [...] to request sample to be sent to [facility] for Hepatitis C Virus (HCV) RNA Detection and Quantitation by Real-Time Reverse Coordinate Measuring Machine Technician-PCR (RT-PCR). Current interpretive data was last revised on 2011 us Miya Kearney PHYSICAL EDUCATION PROFESSOR LAB BLOOD ORDERABLES Final Result HISTORICAL RESULTS from Last 3 Months or Most Recently Relevant to Health Maintenance Insurance [employer] [facility] [employer] OPEN ACCESS Advance Directives For more information, please contact: [phone] * Full Code (Latest Code Status on File) Date Activated Date Inactivated Comments 05/19/2021 1:37 PM 05/20/2021 11:18 PM Healthcare Agents on File Name Relationship Healthcare Agent [facility] p Communication Kofi Turner Father Second Alternate Health Care Agent Care Teams Heating Unit Mechanic Relationship Specialty Start Date End Date Iman Hutchison NP [address] [place] [address] PCP - General Nurse Practitioner 02/15/24
--- OUTSIDE RECORDS SUMMARY | 2024-10-05 15:12 | XMS_ITS | Encounter Summary ---
Author Organization [facility] Care Team Providers Care Quickbooks Bookkeeper Name Role Phone Maren Garcia MD Primary Care Provider [phone] Maren Garcia MD Primary Care Provider [phone] Mahesh Kearney MD Primary Care Provider [phone] Iman Hutchison NP Primary Care Provider [phone] Encounter Details Date Type Department Care Team (Latest Contact Info) Description 12/19/2015 Orders Only [facility] CLINCONV ProviderBrooks MD [address] [place] [id number] Social History Tobacco Use Types Packs/Day Years Used Date Smoking Tobacco: Never Alcohol Use Standard Drinks/Week Comments No 0 (1 standard drink = 0.6 oz pur e alcohol) Comments Unknown Sex and Gender Information Value Date Recorded Sex Assigned at Not on file Legal Sex Female 3:03 AM HANDS AND DIAL INSPECTOR Gender Identity Not on file Sexual Orientation Not on file documented as of this encounter Plan of Treatment Not on file documented as of this encounter Procedures Procedure Name Priority Date/Time Associated Diagnosis Comments CARDIOLOGY REPORT 12/27/2015 12: 00 AM CDT documented in this encounter Results * CARDIOLOGY REPORT (12/27/2015 12:00 AM CDT) Anatomical Region Laterality Modality Other Narrative 12/27/2015 12:00 AM CDT Ordered by an unspecified provider. us Historical Provider [facility] EVY MONTERO Final Result documented in this encounter Visit Diagnoses Not on filedocumented in this encounter Care Teams Quickbooks Bookkeeper Relationship Specialty Start Date End Date Maren Garcia MD PCP - General 06/08/16 12/14/17 Maren Garcia MD PCP - General 01/17/14 06/07/16 Mahesh Kearney MD [facility] [place] [address] PCP - General Family Medicine 12/15/17 02/14/24 Iamn Hutchison NP [address] [place] [id number] PCP - General Nurse Practitioner 02/15/24 documented as of this encounter
--- OUTSIDE RECORDS SUMMARY | 2024-10-05 15:12 | XMS_ITS | Clinical Summary ---
Author Organization [facility] Address [address] [place] [address] Care Team Providers Care Equal Opportunity Officer Name Role Phone None, Physician Primary Care Provider Unavailabl e Source Comments [facility],non-owned Affiliates and Associated Physician Practices is amultiple site organization consisting of ambulatory clinics and hospital sitesin [place], [place], [place] and [place]. This disclosure is being madepursuant to the Care Everywhere program and may not contain all information available regarding this patient. Last updated 18.[facility] Allergies Active Allergy Reactions Criticality Noted Date Comments Ibuprofen Other Medium 12/26/2018 Over 800mg stomach pain Medications * This document contains information received from the source organization and may not represent a complete record from that organization. * Be aware that medications may not be up to date on this document. Alwaysverify current medications with the patient. SUMAtriptan (IMITREX) 50 MG tablet 1 tablet at the onset of migraine; may repeat after 2 hours once in a 24 hour period if needed 9 tablet 3 8 Active Additional Information Patient not taking.Reported on 04/01/2023 rosuvastatin (CRESTOR) 40 MG tablet Take 1 (one) tablet by mouth once daily Active metFORMIN (GLUCOPHAGE) 500 MG tablet Take 1 (one) tablet by mouth 2 times daily with morning and evening meal Active albuterol HFA (Proventil; Ventolin; Proair) 108 (90 Base) MCG/ACT inhaler Inhale 2 (two) puffs by mouth every 6 hours as needed Active montelukast (Singulair) 10 MG tablet Take 1 (one) tablet by mouth at bedtime Active Fluticasone Furoate-Vilante rol (BREO ELLIPTA IN) Active Active Problems Problem Noted Date Diagnosed Date Status migrainosus 09/01/2019 Pain in joint 02/14/2015 Migraine with aura and witho ut status migrainosus, not intractable 01/21/2015 Hyperlipidemia 01/21/2015 Social History Tobacco Use Types Packs/Day Years Used Date Smoking Tobacco: Never Smokeless Tobacco: Never Tobacco Cessation:Counseling Given: Not Answered Alcohol Use Standard Drinks/Week Comments Yes 0 (1 standard drink = 0.6 oz pur e alcohol) Comments No Sex and Gender Information Value Date Recorded Sex Assigned at Not on file Legal Sex Female 6:04 PM TUBE CUTTER Gender Identity Not on file Sexual Orientation Not on file Last Filed Vital Signs Vital Sign Reading Time Taken Comments Blood Pressure 132/82 04/06/2024 9:50 AM TUBE CUTTER Pulse 70 04/06/2024 9:50 AM TUBE CUTTER Temperature 36.3 C (97.3 F) 06/13/2020 10:30 AM TUBE CUTTER Respiratory Rate 14 04/06/2024 9:50 AM TUBE CUTTER Oxygen Saturation 99% 01/21/2015 4:05 PM CDT Inhaled Oxygen Concentration - - Weight 99.8 kg (220 lb) 04/06/2024 9:50 AM TUBE CUTTER Height 165.1 cm (5' 5) 12/08/2018 11:30 AM CDT Body Mass Index 36.61 12/08/2018 11:30 AM CDT Plan of Treatment Upcoming Encounters Date Type Department Care Team (Late st Contact Info) Description 04/05/2025 10:30 AM TUBE CUTTER Office Visit [facility] - Neurology [address] [place] [address], [place] [phone] Louis Isaacs MD [address] [place] [address] [place] [phone] Health Maintenance Due Date Last Done Comments COLOGUARD (AGES 45-75) - COLON CA SCREENING 1971 COLON MONITORING 1971 COLONOSCOPY - COLON CA SCREENING 1971 CT COLONOGRAPHY - COLON CA SCREENING 1971 Colorectal Cancer Screening 1971 FIT - COLON CA SCREENING 1971 FLEX SIG - COLON CA SCREENING 1971 HIV SCREENING 1986 HEPATITIS C SCREENING 02/10/1989 DTAP/TDAP/TD VACCINES (1 - Tdap) 1990 HEPATITIS B VACCINE (1 of 3 - 19+ 3-dose series) 1990 PAP SMEAR 02/16/1992 MAMMOGRAM 03/20/2018 03/20/2016, 05/2015, 03/06/2015, Additional history exists PNEUMOCOCCAL VACCINE 50+ (1 of 1 - PCV) 2021 ZOSTER VACCINE (1 of 2) 2021 COVID-19 VACCINE (1 - season) 2023 DEPRESSION SCREENING 04/19/2024 INFLUENZA VACCINE (Season Ended) 2024 HIB VACCINE Aged Out No longer eligi ble based on patient's age to complete this topic HPV VACCINE Aged Out No longer eligi ble based on patient's age to complete this topic MENINGOCOCCAL (Group B) VACCINE SHARED DECISION-MAKING Aged Out No longer eligible based on patient's age to complete this topic MENINGOCOCCAL GROUPS A/C/Y/W VACCINE Aged Out No longer eligible based on patient's age to complete this topic Insurance [employer] [facility] Care Teams Equal Opportunity Officer Relationship Specialty Start Date End Date None, Physician PCP - General 04/06/24
--- OUTSIDE RECORDS SUMMARY | 2024-10-05 15:12 | XMS_ITS | Encounter Summary ---
Author Organization [facility] Care Team Providers Care Risk Compliance Manager Name Role Phone Maren Garcia MD Primary Care Provider [phone] Maren Garcia MD Primary Care Provider [phone] Mahesh Kearney MD Primary Care Provider [phone] Iman Hutchison NP Primary Care Provider [phone] Encounter Details Date Type Department Care Team (Latest Contact Info) Description 06/04/2016 Orders Only [facility] CLINCON[facility] ProviderBrooks MD [address] [place] [id number] Social History Tobacco Use Types Packs/Day Years Used Date Smoking Tobacco: Never Alcohol Use Standard Drinks/Week Comments No 0 (1 standard drink = 0.6 oz pur e alcohol) Comments Unknown Sex and Gender Information Value Date Recorded Sex Assigned at Not on file 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 us Historical Provider Final Res ult documented in this encounter Visit Diagnoses Not on filedocumented in this encounter Care Teams Risk Compliance Manager Relationship Specialty Start Date End Date Maren Garcia MD PCP - General 06/08/16 12/14/17 Maren Garcia MD PCP - General 01/17/14 06/07/16 Mahesh Kearney MD [address] [place] [address] PCP - General Family Medicine 12/15/17 02/14/24 Iman Hutchison, [employer] [address] [place] [address] PCP - General Nurse Practitioner 02/15/24 documented as of this encounter
--- OUTSIDE RECORDS SUMMARY | 2024-10-05 15:12 | XMS_ITS | Encounter Summary ---
Author Organization [facility] Care Team Providers Care Compotype Operator Name Role Phone Maren Garcia MD Primary Care Provider [phone] Maren Garcia MD Primary Care Provider [phone] Mahesh Kearney MD Primary Care Provider [phone] Iman Hutchison NP Primary Care Provider Encounter Details Date Type Department Care Team (Latest Contact Info) Description 07/09/2015 Orders Only [facility] CLINCONV ProviderBrooks MD [address] [place] [address] Social History Tobacco Use Types Packs/Day Years Used Date Smoking Tobacco: Never Alcohol Use Standard Drinks/Week Comments No 0 (1 standard drink = 0.6 oz pur e alcohol) Comments Unknown Sex and Gender Information Value Date Recorded Sex Assigned at Not on file 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 us Historical Provider Final Res ult * SCAN - LABS (07/09/2015 12:00 AM CDT) Narrative 07/09/2015 12:00 AM CDT Ordered by an unspecified provider. us Historical Provider Final Res ult documented in this encounter Visit Diagnoses Not on filedocumented in this encounter Care Teams Compotype Operator Relationship Specialty Start Date End Date Maren Garcia MD PCP - General 06/08/16 12/14/17 Maren Garcia MD PCP - General 01/17/14 06/07/[address] [facility] [place] [address] PCP - General Family Medicine 12/15/17 02/14/24 Iman Hutchison NP [address] [place] [address] PCP - General Nurse Practitioner 02/15/24 documented as of this encounter
[2024-10-05 16:43] LABS: Alanine Aminotransferase 19 U/L (6-35); Albumin Level 4.1 g/dL (3.5-5.1); Alkaline Phosphatase 73 U/L (38-126); Aspartate Amino Transferase 27 U/L (14-36); Bilirubin,Total 0.3 mg/dL (0.2-1.3); Total Protein 7.7 g/dL (6.3-8.2)
== END 2024-10-05 15:09 | disposition home or self-care (01) ==
LOC: ANHLAB 15:10
PROVIDERS: PCP Nurse Practitioner; Visit Provider Obstetrics & Gynecology
DX: N95.1 Menopausal and female climacteric states (principal)
CPT/HCPCS: 36415; 80076